=== PATIENT | female | born 1950 | race Caucasian/White ===

== ENCOUNTER 2021-12-10 10:36 | Inpatient (IN) | payer MEDICARE, MEDICAID, SELFPAY ==
--- NOTE | ~2021-12-10 | US_ITS ---
EXAMINATION: US VENOUS ULTRASOUND WITH DOPPLER LOWER EXTREMITY, LEFT CLINICAL INFORMATION: Left lower extremity pain, redness and swelling. COMPARISON: None TECHNIQUE: Ultrasound of the deep veins is performed from the hip to the calf with compression sonography and color and pulse Doppler assessment. Spectral analysis with color-flow imaging is performed. FINDINGS: There is normal venous compression and respiratory variation and augmented flow. The visualized common femoral vein, superficial femoral vein, profunda femoral vein, popliteal vein, and the trifurcation region shows no evidence of deep venous thrombosis. No left popliteal cyst. Mild subcutaneous edema is seen in the left calf If the patient's symptoms persist, followup ultrasound in 5 days 7 days might be of value to exclude proximal propagation from a non-visualized calf vein. US/US venous duplex LE IMPRESSION: No evidence for deep venous thrombosis in the visualized veins of the left lower extremity.
[2021-12-10 10:47] VITALS: BP 114/69; PULSE 84; RESP 18; TEMP 37; O2SAT 93; BMI 32.9
[2021-12-10 12:56] LABS: MANUAL DIFF FLAG NO
[2021-12-10 12:58] LABS: Basophils Percent Auto 0.1 % (0-2); Eosinophils Percent Auto 0.1 % (0-4); Hematocrit 38.7 % (37.0-47.0); Hemoglobin 13.3 g/dl (12.0-16.0); Imm Gran Abs Auto 0.02 X10*3/uL (0.00-0.03); Imm Gran Pct Auto 0.2 % (0.0-0.4); Lymphocytes Absolute Auto 0.8 X10*3/uL (1.2-4.9); Mean Corpuscular HGB Conc 34.4 g/dl (31.0-35.0); Mean Corpuscular Hemoglobin 28.3 pg (27.0-33.0); Mean Corpuscular Volume 82.3 fL (80.0-98.0); Mean Platelet Volume 10.5 fL (9.4-12.3); Monocytes Absolute Auto 0.9 X10*3/uL (0.1-1.2); Monocytes Percent Auto 10.8 % (2-11); Neutrophils Absolute Auto 6.3 x10*3/uL (2.0-8.3); Neutrophils Percent Auto 78.8 % (45-73); Platelet Count 166 X10*3/uL (160-400); Red Cell Distribution Width 14.4 % (11.0-16.0); White Blood Count 8.1 X10*3/uL (4.8-10.8)
--- NOTE | 2021-12-10 13:04 | ED_ITS ---
HPI - Extremity Problem General Chief complaint: Extremity Problem Stated complaint: Fever/L leg red swollen Time Seen by Provider: 12/10/21 10:59 Source: patient, family, RN notes reviewed and old records reviewed Limitations: language barrier (Grandson used to interpret patient) History of Present Illness HPI Narrative: This is a 71-year-old Fijian speaking-female presenting to the emergency department, accompanied by family, with complaints of fevers and left lower leg pain, redness and swelling x 4 days. Family reports that patient developed a high fever on Monday night, and the next morning, patient noticed redness to her left foot. The family reports that patient was too weak and was in too much pain to bear weight on her left leg and foot. The redness had progressed up her left lower leg and foot and has had intermittent fevers. Patient reports that she has a history of similar symptoms in the past, however has never progressed to this extent. The family reports that patient did strike her left leg on a storm door 1 week ago, which left a slight abrasion on her left calf but otherwise denies any other recent or injury to her leg. The patient denies any chest pain, shortness of breath, nausea, vomiting, diarrhea, abdominal pain dizziness, syncope. She denies any other complaints or concerns at this time. MD Complaint: extremity pain and extremity swelling Onset (ago): day(s) (4) Pain Consistency: constant Location: left and lower extremity Severity scale (1-10): 3 Quality: aching Radiation: none Relieving factors: nothing Exacerbating factors: nothing Associated symptoms: denies other symptoms Related Data Allergies Allergy/AdvReac Type Severity Reaction Status Date / Time No Known Allergies Allergy Verified 12/10/21 10:46 Review of Systems 2 Review of Systems: Constitutional: +Fever, No Chills ENT/Mouth: No sore throat, No Rhinorrhea, No Swallowing Difficulty Eyes: No Eye Pain, No Swelling, No Redness Cardiovascular: No Chest Pain, No SOB, No Orthopnea, + Edema Respiratory: No Cough, No Sputum, No Wheezing, No dyspnea Gastrointestinal: No Nausea, No Vomiting, No Diarrhea, No abdominal Pain, No Hematochezia, No Melena Genitourinary: +urinary frequency, No Dysuria, No Hematuria Musculoskeletal: No joint pain, No Myalgias Skin: +rash to left leg, +erythema Neuro: No Weakness, No Numbness, No Dizziness, No Headache Psych: No Anxiety/Panic, No Depression Heme/Lymph: No Bruising, No Lymphadenopathy Endocrine: No Polyuria, No Polydipsia [facility] Past Medical History Medical History (Updated 12/10/21 @ 15:35 by Rory Vasquez MD) HLD (hyperlipidemia) Prediabetes Social History Social History Advance Directives: Yes Advance Directives Information Provided: Yes Advance Directives on File: No Physical Exam Vital Signs: Vital Signs: Last Vital Signs Temp 98.2 F 12/10/21 15:37 Pulse 74 12/10/21 15:37 Resp 16 12/10/21 15:37 BP 116/68 12/10/21 15:37 Pulse Ox 94 12/10/21 15:37 O2 Del Method 12/10/21 15:37 BMI result Body Mass Index 32.9 Appearance: Alert. Oriented X3. No acute distress. Eyes: Pupils equal, round and reactive to light. Extra-occular motions are intact. Conjunctiva is non-injected. ENT: Pharynx normal. Tonsils are non edematous and non-erythematous, uvula is midline. Tongue with thick white film, dry mucous membranes. Neck: Normal inspection. Neck supple. CVS: Normal heart rate and rhythm. S1S2. Pulses normal. Respiratory: No respiratory distress. Breath sounds normal. Lung sounds are clear to auscultation bilaterally, no wheezes, rhonchi or rales. Abdomen: Soft and nontender. +BS x4 Skin: Left foot with erythema and edema, that blanches, to the anterior and plantar aspect of the left foot, sparing the longitudinal plantar arch. Left lower leg with circumferential erythema,edema and warmth, extending up to mid- calf. There is a 4cm superficial linear abrasion noted to the left leg, approximately 5cm from the left medial mallelous. There is a 4cm circular, violaceous, flat area of erythema, that is non-blanching. DP are 2+. Extremities: No lower extremity edema. Full range of motion of left knee, ankle, foot, and metatarsals. Neuro: Oriented X 3. No motor deficit. No sensory deficit. Course Course Course Narrative: This is a [id number]-female presenting to the emergency department, accompanied by family, with complaints of fevers and left lower leg pain, redness and swelling x 4 days. Concern for cellulitis with possible vasculitis given PE findings. Will cover broadly with ABX as well as steroids for vasculitis. Case d/w Dr. Espino. Anticipate admission. Plan: Labs, COVID 19 testing, venous duplex ultrasound of the lower extremities ordered. Reevaluation(s) Reevaluation #1: CBC returns with no evidence of leukocytosis however there is a mild left shift with a neutrophil % of 78.8%. ESR is elevated at 75, CRP is elevated at 23.69, potassium is 3.2. Potassium chloride 40 mEq PO given for potassium replenishment. Ultrasound still pending at this time. Time: 14:43 Reevaluation #2: US negative for DVT. Will plan for admission for further treatment and workup. TT Dr. Vasquez who will admit. Time: 15:53 MDM - Extremity (Nontraumatic) Lab Data Result diagrams: 12/10/21 12:50 12/10/21 12:50 Labs: Lab Results 12/10/21 12/10/21 12/10/21 Range/Units 12:50 12:50 12:50 WBC 8.1 (4.8-10.8) X10*3/uL RBC 4.70 (4.20-5.50) X10*6/uL Hgb 13.3 (12.0-16.0) g/dl Hct 38.7 (37.0-47.0) % MCV 82.3 (80.0-98.0) fL MCH 28.3 (27.0-33.0) pg MCHC 34.4 (31.0-35.0) g/dl RDW 14.4 (11.0-16.0) % Plt Count 166 (160-400) X10*3/uL MPV 10.5 (9.4-12.3) fL Immature Gran % (Auto) 0.2 (0.0-0.4) % Neut % (Auto) 78.8 H (45-73) % Lymph % (Auto) 10.0 L (20-40) % [place] % (Auto) 10.8 (2-11) % Eos % (Auto) 0.1 (0-4) % Baso % (Auto) 0.1 (0-2) % Lymph # (Auto) 0.8 L (1.2-4.9) X10*3/uL [place] # (Auto) 0.9 (0.1-1.2) X10*3/uL Eos # (Auto) 0.0 (0.0-0.4) X10*3/uL Baso # (Auto) 0.0 (0.0-0.2) X10*3/uL Abs Immat Gran (auto) 0.02 (0.00-0.03) X10*3/uL Absolute Neuts (auto) 6.3 (2.0-8.3) x10*3/uL Absolute Nucleated RBC 0.000 (0.0-0.012) X10*3/uL Nucleated RBC % (auto) 0.0 (0.0-0.2) /100WBC ESR (0-20) MM/HR Sodium 135 (135-145) mmol/L Potassium 3.2 L (3.3-5.1) mmol/L Chloride 96 (96-108) mmol/L Carbon Dioxide 26 (22-29) mmol/L Anion Gap 16 (12-20) BUN 21 H (9-16) mg/dL Creatinine 0.90 (0.5-1.4) mg/dL Estim Creat Clear Calc 56.7 Estimated GFR > 60 Random Glucose 124 H (60-115) mg/dL Lactic Acid 1.2 (0.5-2.0) mmol/L Calcium 8.9 (8.4-10.2) mg/dL Magnesium 2.2 (1.6-2.6) mg/dL Total Bilirubin 1.2 H (0.0-1.0) mg/dL Direct Bilirubin 0.5 (0.0-0.5) mg/dL AST 29 (5-31) U/L ALT 23 (0-31) U/L Alkaline Phosphatase 87 (39-117) U/L C-Reactive Protein 23.69 H (< or = 0.50) mg/dL Total Protein 7.5 (6.5-8.0) g/dL Albumin 4.2 (3.5-5.0) g/dL COVID-19 (BUTCH) (Negative) COVID-19 Clin Com 12/10/21 12/10/21 Range/Units 12:50 12:50 WBC (4.8-10.8) X10*3/uL RBC (4.20-5.50) X10*6/uL Hgb (12.0-16.0) g/dl Hct (37.0-47.0) % MCV (80.0-98.0) fL MCH (27.0-33.0) pg MCHC (31.0-35.0) g/dl RDW (11.0-16.0) % Plt Count (160-400) X10*3/uL MPV (9.4-12.3) fL Immature Gran % (Auto) (0.0-0.4) % Neut % (Auto) (45-73) % Lymph % (Auto) (20-40) % [place] % (Auto) (2-11) % Eos % (Auto) (0-4) % Baso % (Auto) (0-2) % Lymph # (Auto) (1.2-4.9) X10*3/uL [place] # (Auto) (0.1-1.2) X10*3/uL Eos # (Auto) (0.0-0.4) X10*3/uL Baso # (Auto) (0.0-0.2) X10*3/uL Abs Immat Gran (auto) (0.00-0.03) X10*3/uL Absolute Neuts (auto) (2.0-8.3) x10*3/uL Absolute Nucleated RBC (0.0-0.012) X10*3/uL Nucleated RBC % (auto) (0.0-0.2) /100WBC ESR 75 H (0-20) MM/HR Sodium (135-145) mmol/L Potassium (3.3-5.1) mmol/L Chloride (96-108) mmol/L Carbon Dioxide (22-29) mmol/L Anion Gap (12-20) BUN (9-16) mg/dL Creatinine (0.5-1.4) mg/dL Estim Creat Clear Calc Estimated GFR Random Glucose (60-115) mg/dL Lactic Acid (0.5-2.0) mmol/L Calcium (8.4-10.2) mg/dL Magnesium (1.6-2.6) mg/dL Total Bilirubin (0.0-1.0) mg/dL Direct Bilirubin (0.0-0.5) mg/dL AST (5-31) U/L ALT (0-31) U/L Alkaline Phosphatase (39-117) U/L C-Reactive Protein (< or = 0.50) mg/dL Total Protein (6.5-8.0) g/dL Albumin (3.5-5.0) g/dL COVID-19 (BUTCH) Negative (Negative) COVID-19 Clin Com See Note Discharge Plan Discharge Clinical Impression: Cellulitis, Vasculitis Patient Disposition: Admitted As Inpatient
[2021-12-10 13:16] LABS: COVID-19 Test Negative (Negative); IDNOW Serial# 9DB6401D
[2021-12-10 13:43] LABS: Lactic Acid 1.2 mmol/L (0.5-2.0)
[2021-12-10 13:55] LABS: Alanine Aminotransferase 23 U/L (0-31); Albumin Level 4.2 g/dL (3.5-5.0); Alkaline Phosphatase 87 U/L (39-117); Anion Gap 16 (12-20); Aspartate Amino Transferase 29 U/L (5-31); Bilirubin Direct 0.5 mg/dL (0.0-0.5); Bilirubin Total 1.2 mg/dL (0.0-1.0); Blood Urea Nitrogen 21 mg/dL (9-16); C Reactive Protein 23.69 mg/dL (< or = 0.50); Calcium 8.9 mg/dL (8.4-10.2); Carbon Dioxide 26 mmol/L (22-29); Chloride 96 mmol/L (96-108); Creatinine Clr Calc Pharmacy 56.7; Estimated Glomerular Filt Rate > 60; Glucose Random 124 mg/dL (60-115); Magnesium 2.2 mg/dL (1.6-2.6); Potassium 3.2 mmol/L (3.3-5.1); Sodium 135 mmol/L (135-145); Total Protein 7.5 g/dL (6.5-8.0)
[2021-12-10 14:14] LABS: Erythrocyte Sedimentation Rate 75 MM/HR (0-20)
[2021-12-10] MEDS: methylPREDNISolone Sod Succ 125 MG/2 ML VIAL 60 MG IVPUSH (14:42)
[2021-12-10] MEDS: cefTRIAXone sodium 1 GM in 0.9 % Sodium Chloride 50 ML IV (14:42)
[2021-12-10] MEDS: 0.9 % Sodium Chloride 1,000 ML 999 ML IVCONT (14:43)
[2021-12-10] MEDS: Potassium Chloride ER 20 MEQ TAB.ER.PRT 40 MEQ PO (14:53)
[2021-12-10 15:37] VITALS: BP 116/68; PULSE 74; RESP 16; TEMP 36.8; O2SAT 94
--- NOTE | 2021-12-10 16:24 | P.HPHOSP_ITS ---
History of Present Illness Date of Service: 12/10/21 Chief Complaint: LLE redness This is a 71-year-old, Tajik-speaking female with a past medical history of hypertension who presents to the emergency room with a 4 day history of left lower extremity redness, swelling, pain with associated fevers. 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 Shortly before the patient's left lower extremity redness started, she had sustained a minor cut to the same extremity. It appears that she 1st began having fevers and by the next day her leg was becoming increasingly eryth ematous. Her fevers have resolved now per the family, however her erythema persist and hence they brought her to the emergency room. In the emergency room, the patient was noted to have elevations in her ESR and CRP with a normal leukocytosis, however there is a left shift. She was given IV ceftriaxone and IV vancomycin along with intravenous fluids. Due to the extent of her cellulitis, she will be admitted for IV antibiotics. Review of Systems Review of Systems: negative except HPI [facility] Medical History (Updated 12/10/21 @ 16:27 by Khoa Cline MD) HLD (hyperlipidemia) Prediabetes Pertinent family history: No significant family history reported Surgical History (Updated 12/10/21 @ 16:28 by Khoa Cline MD) No pertinent past surgical history Social History (Updated 12/10/21 @ 16:28 by Khoa Cline MD) Alcohol intake: never Patient Tobacco Use Status: Never used Tobacco Use of substances other than those prescribed or required for medical reasons: No Advance Directives: Yes Advance Directives Information Provided: Yes Advance Directives on File: No Meds Allergies Allergy/AdvReac Type Severity Reaction Status Date / Time No Known Allergies Allergy Verified 12/10/21 10:46 Physical Exam Vital Signs and Narrative: Vital Signs: Last Vital Signs Temp 98.2 F 12/10/21 15:37 Pulse 74 12/10/21 15:37 Resp 16 12/10/21 15:37 BP 116/68 12/10/21 15:37 Pulse Ox 94 12/10/21 15:37 O2 Del Method 12/10/21 15:37 BMI result Body Mass Index 32.9 Const: Other: Constitutional - Awake and Alert, No apparent distress Eyes - PERRLA, EOMI Cardiovascular - S1S2, RRR, No edema Respiratory - Normal lung expansion, Normal respiratory effort, No respiratory distress, CTA bilaterally Gastrointestinal - NT / ND; +BS; No rebound or guarding - No CVA tenderness Extremities - no calf tenderness bilaterally, no swelling Musculoskeletal - Normal inspection, normal ROM Skin - see below Neurological - Alert & oriented x3, No focal deficit Psychological - Appropriate affect Results Labs CBC and Chem 7: 12/10/21 12:50 12/10/21 12:50 Labs: Laboratory Results - last 24 hr 12/10/21 12/10/21 12/10/21 12:50 12:50 12:50 MCV 82.3 MCH 28.3 MCHC 34.4 RDW 14.4 Plt Count 166 MPV 10.5 Immature Gran % (Auto) 0.2 Neut % (Auto) 78.8 H Lymph % (Auto) 10.0 L [place] % (Auto) 10.8 Eos % (Auto) 0.1 Baso % (Auto) 0.1 Lymph # (Auto) 0.8 L [place] # (Auto) 0.9 Eos # (Auto) 0.0 Baso # (Auto) 0.0 Abs Immat Gran (auto) 0.02 Absolute Neuts (auto) 6.3 Absolute Nucleated RBC 0.000 Nucleated RBC % (auto) 0.0 ESR Anion Gap 16 Estim Creat Clear Calc 56.7 Estimated GFR > 60 Random Glucose 124 H Lactic Acid 1.2 Calcium 8.9 Magnesium 2.2 Total Bilirubin 1.2 H Direct Bilirubin 0.5 AST 29 ALT 23 Alkaline Phosphatase 87 C-Reactive Protein 23.69 H Total Protein 7.5 Albumin 4.2 COVID-19 (BUTCH) COVID-19 Clin Com 12/10/21 12/10/21 12:50 12:50 MCV MCH MCHC RDW Plt Count MPV Immature Gran % (Auto) Neut % (Auto) Lymph % (Auto) [place] % (Auto) Eos % (Auto) Baso % (Auto) Lymph # (Auto) [place] # (Auto) Eos # (Auto) Baso # (Auto) Abs Immat Gran (auto) Absolute Neuts (auto) Absolute Nucleated RBC Nucleated RBC % (auto) ESR 75 H Anion Gap Estim Creat Clear Calc Estimated GFR Random Glucose Lactic Acid Calcium Magnesium Total Bilirubin Direct Bilirubin AST ALT Alkaline Phosphatase C-Reactive Protein Total Protein Albumin COVID-19 (BUTCH) Negative COVID-19 Clin Com See Note Imaging Radiologist's Impressions: Impressions Venous Duplex 12/10/21 14:45 IMPRESSION: No evidence for deep venous thrombosis in the visualized veins of the left lower extremity. Assessment and Plan (1) Cellulitis: Status: Acute Plan This is a 71-year-old female with a past medical history of hypertension, pre-DM (Recent A1C at [facility] [place] 6.1), HLD who presents to the hospital with a 4 day history of left lower extremity erythema, pain, fevers. Her presentation is most consistent with acute cellulitis. 1. LLE cellulitis >50% of the limb, from foot to knee Likely Strep IV kefzol +IV clindamycin IVF the patient does not have severe sepsis at this time 2. HTN hold antihypertensives 3. Obesity weight loss / diet 4. Pre-DM A1c 6.1 at [facility] [place] recently doesnt appear to be on meds Full Code DVT pptx, Lovenox Due to the extensive nature of the patients cellulitis (along with her being pre-diabetic), which I anticipate will require at least 2-3 days of multiple IV antibiotics, the patient will be admitted as an inpatient. I do not believe her cellulitis will improve significantly enough for transition to oral meds within 48 hours. Therefore, she will require a medically necessary inpatient hospitalization, likely to span at least 2 midnights. Quality Stroke Does the patient have a stroke diagnosis?: No VTE Prior VTE?: No VTE Risk Level:: Medical - moderate - high VTE Device Contraindication: Treatment Not Indicated VTE Drug Contraindication: N/A - Med Ordered
--- NOTE | 2021-12-10 17:08 | PHA.MEDREC ---
Pharmacy Consult ? Medication Reconciliation Pharmacy has completed the medication reconciliation. Contacted patient's family with Dr. Cline. They report atenolol 25-50 mg and amlodipine 5 mg. Contacted patient's pharmacy [phone], who was able to confirm it is atenolol-chlorthalidone combination tablet. Gloria Barber, PharmD
[2021-12-10 17:25] VITALS: BP 125/72; PULSE 67; RESP 16; TEMP 36.2; O2SAT 90
[2021-12-10] MEDS: Clindamycin Phosphate/D5W 600 MG/50 ML PIGGYBACK 100 MG IV (17:53)
[2021-12-10] MEDS: Enoxaparin Sodium 40 MG/0.4 ML SYRINGE SUBCUT (17:53)
[2021-12-10] MEDS: 0.9 % Sodium Chloride 1,000 ML 100 ML IVCONT (17:53)
[2021-12-10] MEDS: ceFAZolin Sodium/Dextrose,Iso 2 GM/50 ML PIGGYBACK IV (18:59)
[2021-12-10 20:13] LABS: Appearance Urine CLEAR; Color Urine YELLOW; Glucose Urine UA NEG (NEG); Leukocyte Esterase Urine 1+ (NEG); Nitrite Urine NEG (NEG); Specific Gravity - Urine <= 1.005 (1.005-1.025); UACC Culture Trigger YES; Urine Blood NEG (NEG); Urine Ketones 5 MG/DL (NEG); Urine Protein NEG (NEG-TRACE)
[2021-12-10 20:26] LABS: Amorphous Sediment Urine 1+ /LPF; Mucus Urine 1+ /LPF; Squamous Epithelial Cell Urine 1+ /LPF
[2021-12-10 21:36] VITALS: BP 141/79; PULSE 76; RESP 16; TEMP 36.7; O2SAT 98
--- NOTE | 2021-12-10 22:13 | PC.NURSE ---
no assessment charted by previous RN
--- NOTE | 2021-12-10 22:27 | PC.NURSE ---
PATIENT WAS OFFER FOOD ,BUT REFUSED ,SAID SHE BROUGHT FOOD FROM HOME ,PATIENT USE BEDSIDE COMMODE INDEPENDENTLY .
[2021-12-11] MEDS: ceFAZolin Sodium/Dextrose,Iso 2 GM/50 ML PIGGYBACK IV ×3 (00:59→16:38)
[2021-12-11] MEDS: 0.9 % Sodium Chloride Flush 3 ML SYRINGE IVFLUSH (00:59)
--- NOTE | 2021-12-11 01:00 | PC.NURSE ---
RESTING COMF.DENIES PAIN.LEFT LOWER EXT REMAINS REDDENED WITH 2+ EDEMA.AREAS MARKED.IV FLUIDS INFUSING
[2021-12-11] MEDS: Clindamycin Phosphate/D5W 600 MG/50 ML PIGGYBACK 100 MG IV ×3 (01:49→16:38)
[2021-12-11] MEDS: 0.9 % Sodium Chloride 1,000 ML 100 ML IVCONT (04:08)
[2021-12-11 07:34] LABS: Hematocrit 35.3 % (37.0-47.0); Hemoglobin 11.9 g/dl (12.0-16.0); Mean Corpuscular HGB Conc 33.7 g/dl (31.0-35.0); Mean Corpuscular Hemoglobin 27.9 pg (27.0-33.0); Mean Corpuscular Volume 82.7 fL (80.0-98.0); Mean Platelet Volume 10.7 fL (9.4-12.3); Platelet Count 167 X10*3/uL (160-400); Red Blood Count 4.27 X10*6/uL (4.20-5.50); Red Cell Distribution Width 14.3 % (11.0-16.0); White Blood Count 5.3 X10*3/uL (4.8-10.8)
[2021-12-11 07:53] LABS: Anion Gap 13 (12-20); Blood Urea Nitrogen 16 mg/dL (9-16); Calcium 8.6 mg/dL (8.4-10.2); Carbon Dioxide 24 mmol/L (22-29); Chloride 106 mmol/L (96-108); Creatinine Clr Calc Pharmacy 71.9; Estimated Glomerular Filt Rate > 60; Glucose Random 156 mg/dL (60-115); Potassium 4.3 mmol/L (3.3-5.1); Sodium 139 mmol/L (135-145)
[2021-12-11 09:03] VITALS: BP 129/67; PULSE 78; RESP 16; O2SAT 94
--- NOTE | 2021-12-11 10:21 | P.PNIM_ITS ---
Subjective Subjective Date of Service: 12/11/21 Interval History: seen and examined family translates reports less pain and wants to go home denies fevers or chills Review of Systems negative except HPI Physical Exam Vital Signs: Vital Signs: Last Vital Signs Temp 98.0 F 12/10/21 21:36 Pulse 78 12/11/21 09:03 Resp 16 12/11/21 09:03 BP 129/67 12/11/21 09:03 Pulse Ox 94 12/11/21 09:03 O2 Del Method 12/11/21 09:03 BMI result Body Mass Index 32.9 Const: Other: General - no acute distress, appears comfortable Cardiovascular - regular rate and rhythm, S1-S2 Lungs - normal respiratory effort, clear to auscultation bilaterally, no wheezing Abdomen - soft, nontender, no rebound or guarding Extremities - LLE erythema, warmth and edema improved compared to yesterday Neuro - awake and alert, no focal deficits Objective Data Active Medications Acetaminophen (Acetaminophen 325 Mg Tablet) 650 mg PO Q6H PRN PRN Reason: Pain, Mild (Pain Scale 1-3) Enoxaparin Sodium (Enoxaparin Sodium 40 Mg/0.4 Ml Syringe) 40 mg SUBCUT Q24H [facility] Last Admin: 12/10/21 17:53 Dose: 40 mg Documented By: ALICIA Sodium Chloride (Ns) 1,000 mls @ 100 mls/hr IVCONT .Q10H [facility] Last Admin: 12/11/21 04:08 Dose: 100 mls/hr Documented By: FLAQUITO Clindamycin Phosphate (Cleocin) 600 mg in 50 mls @ 100 mls/hr IV Q8H [facility] Last Infusion: 12/11/21 02:48 Dose: 0 mls/hr Documented By: FLAQUITO Cefazolin Sodium/Dextrose (Ancef) 2 gm in 50 mls @ 100 mls/hr IV Q8H [facility] Last Infusion: 12/11/21 01:33 Dose: 0 mls/hr Documented By: FLAQUITO Ondansetron HCl (Ondansetron Hcl 4 Mg/2 Ml Vial) 4 mg IVPUSH Q8H PRN PRN Reason: Nausea and Vomiting Sodium Chloride (0.9 % Sodium Chloride Flush 3 Ml Syringe) 3 ml IVFLUSH QSHIFT [facility] Last Admin: 12/11/21 08:18 Dose: Not Given Documented By: RENATO Non-Admin Reason: assessed Labs CBC & Chem 7: 12/11/21 06:11 12/11/21 06:11 Labs: Laboratory Results - last 24 hr 12/10/21 12/10/21 12/10/21 12:50 12:50 12:50 MCV 82.3 MCH 28.3 MCHC 34.4 RDW 14.4 Plt Count 166 MPV 10.5 Immature Gran % (Auto) 0.2 Neut % (Auto) 78.8 H Lymph % (Auto) 10.0 L [place] % (Auto) 10.8 Eos % (Auto) 0.1 Baso % (Auto) 0.1 Lymph # (Auto) 0.8 L [place] # (Auto) 0.9 Eos # (Auto) 0.0 Baso # (Auto) 0.0 Abs Immat Gran (auto) 0.02 Absolute Neuts (auto) 6.3 Absolute Nucleated RBC 0.000 Nucleated RBC % (auto) 0.0 ESR Anion Gap 16 Estim Creat Clear Calc 56.7 Estimated GFR > 60 Random Glucose 124 H Lactic Acid 1.2 Calcium 8.9 Magnesium 2.2 Total Bilirubin 1.2 H Direct Bilirubin 0.5 AST 29 ALT 23 Alkaline Phosphatase 87 C-Reactive Protein 23.69 H Total Protein 7.5 Albumin 4.2 Urine Color Urine Appearance Urine pH Ur Specific [place] Urine Protein Urine Glucose (UA) Urine Ketones Urine Blood Urine Nitrite Ur Leukocyte Esterase Urine RBC Urine WBC Ur Squamous Epith Cells Amorphous Sediment Urine Bacteria Urine Mucus COVID-19 (BUTCH) COVID-19 Clin Com 12/10/21 12/10/21 12/10/21 12:50 12:50 20:06 MCV MCH MCHC RDW Plt Count MPV Immature Gran % (Auto) Neut % (Auto) Lymph % (Auto) [place] % (Auto) Eos % (Auto) Baso % (Auto) Lymph # (Auto) [place] # (Auto) Eos # (Auto) Baso # (Auto) Abs Immat Gran (auto) Absolute Neuts (auto) Absolute Nucleated RBC Nucleated RBC % (auto) ESR 75 H Anion Gap Estim Creat Clear Calc Estimated GFR Random Glucose Lactic Acid Calcium Magnesium Total Bilirubin Direct Bilirubin AST ALT Alkaline Phosphatase C-Reactive Protein Total Protein Albumin Urine Color YELLOW Urine Appearance CLEAR Urine pH 6.0 Ur Specific [place] <= 1.005 Urine Protein NEG Urine Glucose (UA) NEG Urine Ketones 5 Urine Blood NEG Urine Nitrite NEG Ur Leukocyte Esterase 1+ H Urine RBC 5-9 H Urine WBC 5-9 H Ur Squamous Epith Cells 1+ Amorphous Sediment 1+ Urine Bacteria NONE Urine Mucus 1+ COVID-19 (BUTCH) Negative COVID-19 Clin Com See Note 12/11/21 12/11/21 06:11 06:11 MCV 82.7 MCH 27.9 MCHC 33.7 RDW 14.3 Plt Count 167 MPV 10.7 Immature Gran % (Auto) Neut % (Auto) Lymph % (Auto) [place] % (Auto) Eos % (Auto) Baso % (Auto) Lymph # (Auto) [place] # (Auto) Eos # (Auto) Baso # (Auto) Abs Immat Gran (auto) Absolute Neuts (auto) Absolute Nucleated RBC 0.000 Nucleated RBC % (auto) 0.0 ESR Anion Gap 13 Estim Creat Clear Calc 71.9 Estimated GFR > 60 Random Glucose 156 H Lactic Acid Calcium 8.6 Magnesium Total Bilirubin Direct Bilirubin AST ALT Alkaline Phosphatase C-Reactive Protein Total Protein Albumin Urine Color Urine Appearance Urine pH Ur Specific [place] Urine Protein Urine Glucose (UA) Urine Ketones Urine Blood Urine Nitrite Ur Leukocyte Esterase Urine RBC Urine WBC Ur Squamous Epith Cells Amorphous Sediment Urine Bacteria Urine Mucus COVID-19 (BUTCH) COVID-19 Clin Com Assessment and Plan (1) Cellulitis: Status: Acute Plan This is a 71-year-old female with a past medical history of hypertension, pre-DM (Recent [place] [facility] [place].1), HLD who presents to the hospital with a 4 day history of left lower extremity erythema, pain, fevers.? Her presentation is most consistent with acute cellulitis. 1. LLE cellulitis >50% of the limb, from foot to knee IV kefzol +IV clindamycin - day #2 follow cultures 2. HTN hold antihypertensives 3. Obesity weight loss / diet 4. Pre-DM A1c 6.1 at [facility] [place] recently doesn't appear to be on meds Full Code DVT pptx, Lovenox Patient requires continued hospitalization due to the severe of her cellulitis (limb at risk). Although it is improving, it has not improved enough to transition to oral meds. Quality Stroke Does the patient have a stroke diagnosis?: No VTE Prior VTE?: No VTE Risk Level:: Medical - moderate - high VTE Device Contraindication: Treatment Not Indicated VTE Drug Contraindication: N/A - Med Ordered
[2021-12-11] MEDS: Enoxaparin Sodium 40 MG/0.4 ML SYRINGE SUBCUT (16:39)
--- NOTE | 2021-12-11 18:08 | PC.NURSE ---
Pt family at bedside today assisting with care. pt able to ambulate w/o assist steadily. call gibson within reach. pt is new zealander speaking only. assessed pt this AM. call gibson within reach, safety and fall precautions in place. pt able to repo self.
[2021-12-11 18:10] VITALS: BP 129/74; PULSE 60; RESP 12; TEMP 36.2; O2SAT 93
[2021-12-12] MEDS: Clindamycin Phosphate/D5W 600 MG/50 ML PIGGYBACK 100 MG IV ×2 (01:34→09:53)
[2021-12-12 01:38] VITALS: BP 149/90; PULSE 63; RESP 16; O2SAT 93
[2021-12-12] MEDS: ceFAZolin Sodium/Dextrose,Iso 2 GM/50 ML PIGGYBACK IV (02:23)
--- NOTE | 2021-12-12 07:27 | PC.NURSE ---
Assumed care of this pt. at 0700. Report from Shania Pimentel RN
[2021-12-12 09:51] VITALS: BP 129/72; PULSE 69; RESP 18; O2SAT 93
--- NOTE | 2021-12-12 09:57 | P.DS_ITS ---
DS: Providers Provider Date of Service: 12/12/21 Date of admission: 12/10/21 16:19 Primary care physician: Unknown Physician DS: Diagnosis Discharge Diagnosis (1) Cellulitis: Status: Acute (2) Obesity: Status: Acute (3) Benign essential HTN: Status: Acute DS: Summary Hospital Course Hospital Course: HPI: This is a 71-year-old, Singaporean-speaking female with a past medical history of hypertension who presents to the emergency room with a 4 day history of left lower extremity redness, swelling, pain with associated fevers.? The patient prefers to use family for interpretation and the education specialist over the phone.? Shortly before the patient's left lower extremity redness started, she had sustained a minor cut to the same extremity.? It appears that she 1st began having fevers and by the next day her leg was becoming increasingly erythematous.? Her fevers have resolved now per the family, however her erythema persist and hence they brought her to the emergency room. In the emergency room, the patient was noted to have elevations in her ESR and CRP with a normal leukocytosis, however there is a left shift.? She was given IV ceftriaxone and IV vancomycin along with intravenous fluids.? Due to the extent of her cellulitis, she will be admitted for IV antibiotics. Hospital Course: The patient was treated with IV clinda + kefzol. SHe improved the course of 3 days in the hospital with significant improvement in her cellulitis. She will be transitioned to oral kefelx x 7 more days. She should f/u with pcp within 1-2 weeks to ensure resolution. Time Spent with Patient Time attestation: Total time spent providing and/or coordinating discharge services: Discharge coordination time: Greater than 30 minutes Quality: Safe Use of Opioids Does Pt have an Active Cancer Diagnosis on the Problem List?: No Quality: Stroke Does the patient have a stroke diagnosis?: No Physical Exam Vital Signs: Vital Signs: Last Vital Signs Temp 97.1 F 12/11/21 18:10 Pulse 69 12/12/21 09:51 Resp 18 12/12/21 09:51 BP 129/72 12/12/21 09:51 Pulse Ox 93 12/12/21 09:51 O2 Del Method 12/12/21 09:51 BMI result Body Mass Index 32.9 Const: Other: General - no acute distress, appears comfortable Cardiovascular - regular rate and rhythm, S1-S2 Lungs - normal respiratory effort, clear to auscultation bilaterally, no wheezing Abdomen - soft, nontender, no rebound or guarding Extremities - LLE erythema significant improved; minial in the foot remaining now Neuro - awake and alert, no focal deficits DS: Data Data Completed and Pending Labs on day of discharge: Preliminary micro results at discharge 12/10/21 12:39 Blood Culture - Preliminary Blood - Venous No growth after 24 hours. 12/10/21 12:50 Blood Culture - Preliminary Blood - Venous No growth after 24 hours. 12/10/21 20:06 Urine Culture - Preliminary Urine clean catch - Urine williamson top No growth to date. Discharge Plan Discharge Patient Disposition: Home, Self-Care Discharge Diagnosis: Cellulitis Referrals: Physician,Unknown J [Primary Care Provider] - 1 Week Discharge Medications: New cephalexin 500 mg capsule 500 mg PO QID Qty: 28 0RF Continued atenolol-chlorthalidone 50-25 mg Tablet 1 tab PO DAILY amlodipine 5 mg Tablet 5 mg PO DAILY Discharge Orders: Discharge Order (Routine); Ordered 12/12/21 Ordered By: Khoa Cline Diet: Advance to usual diet Activity on Discharge: As tolerated Stand Alone Forms: Patient Portal Discharge page Care Plan Goals: To stay healthy and out of the hospital. Health Concerns: Cellulitis Plan of Treatment: Take antibiotics for 7 more days. Follow up with primary care doctor. Assessment: see discharge summary
--- NOTE | 2021-12-13 06:59 | MHC.CM.PN ---
Patient discharged before being seen by case management.
--- NOTE | 2021-12-13 14:36 | MHC.CM.PN ---
Received telephone call from Ruby at [facility]. Patient was supposed to be discharged with a RX for oral Keflex. [facility] did not receive this RX. Dr Cline has been asked to resend this RX. Continue to monitor for d/c needs.
== END 2021-12-12 10:47 | disposition home or self-care (01) | DRG 603 ==
LOC: HO.ED 15:33 → HO.EDOVER 16:27
PROVIDERS: Physician Assistant; Admitting Provider Family Medicine; Emergency Provider Emergency Medicine; Visit Provider Family Medicine
DX: L03.116 Cellulitis of left lower limb (principal); E78.5 Hyperlipidemia, unspecified; I10 Essential (primary) hypertension; R73.03 Prediabetes; E66.9 Obesity, unspecified; Z68.32 Body mass index [BMI] 32.0-32.9, adult; Z20.822 Contact with and (suspected) exposure to COVID-19; Z79.899 Other long term (current) drug therapy
CPT/HCPCS: 36415; 80048; 80076; 81001; 83605; 83735; 85025; 85027; 85652; 86140; 87040; 87086; 87635; 93971; 96361; 96365; 96367; 96375; 99285; J0690; J0696; J1650; J2930; J3370

== ENCOUNTER 2024-05-11 19:29 | Inpatient (IN) | payer MEDICARE, SELFPAY ==
[2024-05-11] VITALS (13 sets, daily range): BP systolic 149–200; BP diastolic 85–110; PULSE 58–74; RESP 14–24; TEMP 36.3–36.8; O2SAT 92–97; BMI 33.3
--- NOTE | ~2024-05-11 | MR_ITS ---
EXAMINATION: MR BRAIN WITHOUT CONTRAST CLINICAL INFORMATION: Stroke. Status post TNK infusion. COMPARISON: CT head and neck from 05/11/2024. TECHNIQUE: MRI of the brain was obtained using routine sequences without contrast. FINDINGS: Moderately motion degraded exam. Regions of restricted diffusion in the right CO OP territory involving the parasagittal aspects of the right occipital parietal lobes, posterior aspect of the right mesial temporal lobe, and medial aspect of the right thalamus. Associated T2 FLAIR hyperintensity. No evidence of hemorrhagic transformation. No additional restricted diffusion. No evidence of acute hemorrhagic products on heme-sensitive imaging. Scattered small foci of susceptibility artifact in the right cerebral hemisphere and left thalamus consistent with petechial microhemorrhage. Small chronic lacunar infarcts of the left thalamus and cerebellum. Confluent periventricular, deep white matter, and brainstem T2 FLAIR hyperintensity consistent with underlying microangiopathy. Proportional prominence of the ventricles and sulcal spaces without evidence of obstructive hydrocephalus. No abnormal mass effect. No midline shift. Normal appearance of the pituitary gland. Normal positioning of the cerebellar tonsils. 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 Otherwise, normal arterial and venous vascular flow voids are present. Normal, homogeneous marrow signal. Mild mucosal thickening of the paranasal sinuses. No signal abnormalities within the mastoids. MR/MR head/brain wo con IMPRESSION: 1. Evolving acute right CO OP territory infarct. No evidence of hemorrhagic transformation. 2. Extensive underlying microangiopathy and generalized cerebral volume loss. Chronic lacunar infarcts of the deep nuclei and cerebellum. 3. 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 Electronically signed by: Hossein Gan DO 05/12/2024 07:13 PM [facility]
--- NOTE | ~2024-05-11 | CT_ITS ---
EXAMINATION: CT ANGIOGRAM HEAD CT ANGIOGRAM NECK CLINICAL INFORMATION: Left-sided weakness. COMPARISON: CT head from 05/11/2024. TECHNIQUE: Initial noncontrast patient representative imaging of the head and neck was performed. Comparison is made with noncontrast head CT from earlier today. Test bolus sequences followed by intravenous administration 70 mL of Omnipaque 350. Helical imaging was performed in the axial plane from the aortic arch to the skull vertex. Delayed postcontrast imaging of the head was also performed. The data was processed at the food technologist's workstation for generation of MIP sequences. Angled MIPs and volume rendered reformatted images were also generated at an offline 3D workstation. Stenoses are assessed in accordance with NASCET criteria unless otherwise indicated. This CT examination was performed using dose optimization techniques as appropriate, variously including the following: *Automated exposure control. *Adjustment of mA and/or kV according to patient size (this includes techniques or standardized protocols for targeted exams where dose is matched to indication/reason for exam; i.e. extremities or head). *Use of iterative reconstruction technique. DLP: 1441 mGy-cm FINDINGS: CT Head: Apparent region of of cortical hypoattenuation within the right greater than left occipital lobes. No evidence of acute intracranial hemorrhage. Confluent hypoattenuation in the periventricular and deep white matter. Proportional prominence of the ventricles and sulcal spaces without evidence of obstructive hydrocephalus. No abnormal mass effect or midline shift. No extra-axial fluid collections. Calcific atherosclerotic disease of the intracranial internal carotid and vertebral arteries. No hyperdense vessel sign. Potential 1.1 cm aneurysm projecting to the left of the mid basilar artery. No pathologic intra-axial enhancement. No acute soft tissue or osseous abnormalities. Mild mucosal thickening of the paranasal sinuses. The mastoid air cells and middle ear cavities are clear. Mild rightward nasal septal deviation. CT Neck: The thyroid gland and remaining cervical soft tissues are within normal limits. Straightening of the normal cervical lordosis. Advanced degenerative disc disease at C6-C7. Moderate degenerative disc disease at C5-C6. CT Upper Chest: The visualized lung apices and upper mediastinum are within normal limits. Neck CTA: Aortic Arch: Normal contour and caliber with mild calcific atherosclerotic disease Classic 3 vessel branching pattern of the aortic arch. Great Vessel Origins: No significant stenosis of the branch origins. Right Common Carotid Artery: No focal stenosis or occlusion. Cervical Right Internal Carotid Artery: Mixed fibrofatty and calcific atherosclerotic disease of the carotid bulb and proximal internal carotid artery causing less than 50% stenosis. Left Common Carotid Artery: No focal stenosis or occlusion. Cervical Left Internal Carotid Artery: Calcific atherosclerotic disease of the carotid bulb and proximal internal carotid artery causing less than 50% stenosis. Tortuous vessel as may be seen with underlying hypertension. Cervical Right Vertebral Artery: No focal stenosis or occlusion. Cervical Left Vertebral Artery: Dominant. No focal stenosis or occlusion. Brain CTA: Intracranial Internal Carotid Arteries: Calcific atherosclerotic disease of the intracranial internal carotid arteries without occlusion or flow-limiting stenosis. Right Anterior Cerebral Artery: Normal A1 segment. Normal opacification of the distal KOURTNEY segments. Left Anterior Cerebral Artery: The A1 segment is diminutive. Normal opacification of the distal KOURTNEY segments. Anterior Communicating Artery: Normal. Right Middle Cerebral Artery: Normal M1 segment of the MCA without focal stenosis or occlusion. Normal arborization of the distal segments. Left Middle Cerebral Artery: Normal M1 segment of the MCA without focal stenosis or occlusion. Normal arborization of the distal segments. Right Vertebral Artery: Normal V4 segment. Normal opacification of the proximal segments of the posterior inferior cerebellar artery. Left Vertebral Artery: Normal V4 segment. Normal opacification of the proximal segments of the posterior inferior cerebellar artery. Basilar Artery: There is a 1.4 cm partially thrombosed aneurysm projecting to the left from the mid basilar artery. Otherwise, normal without focal stenosis or occlusion. Normal appearance of the proximal superior cerebellar arteries. Right Posterior Cerebral Artery: Normal P1 segment. Occlusion of the P1-P2 junction. Reconstitution of the distal PUBLIC HEALTH NUTRITIONIST segments. Left Posterior Cerebral Artery: The P1 segment is diminutive. origin of the PUBLIC HEALTH NUTRITIONIST with robust opacification of the posterior communicating artery. Moderate stenosis of the P2 segment. Normal opacification of the distal PUBLIC HEALTH NUTRITIONIST segments. Normal opacification of the superior sagittal, straight, transverse, and sigmoid sinuses. CT/CT angio head neck STROKE IMPRESSION: 1. Apparent region of cortical hypoattenuation within the right occipital lobe. Occlusion of the P1-P2 junction of the right PUBLIC HEALTH NUTRITIONIST with partial reconstitution of the distal segments (likely from collateralization). No evidence of acute intracranial hemorrhage. This appearance may represent sequela of acute to subacute PUBLIC HEALTH NUTRITIONIST territory infarct. Although an underlying vasoreactive syndrome such as posterior reversible encephalopathy syndrome (PRES) could have a similar appearance. 2. Extensive white matter disease and mild generalized cerebral volume loss. 3. 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 4. Moderate stenosis of the P2 segment of the left PUBLIC HEALTH NUTRITIONIST. Tortuous vessels and overall relative prominence of the anterior and posterior circulation systems. Recommend correlation with potential underlying hypertension. 5. CTA of the head and neck without additional proximal occlusion or flow-limiting stenosis. This critical result was discussed with Dr. Rodriguez Ogden at 19:52 on 05/11/2024 and it was ascertained that the content and urgency of the report was understood at the time of direct communication. Electronically signed by: Hossein Gan DO 05/11/2024 10:32 PM [facility]
--- NOTE | ~2024-05-11 | CT_ITS ---
EXAMINATION: CT HEAD WITHOUT CONTRAST CLINICAL INFORMATION: Left-sided weakness. COMPARISON: None available. TECHNIQUE: Contiguous axial imaging was performed from the skull base to vertex without intravenous administration of contrast. This CT examination was performed using dose optimization techniques as appropriate, variously including the following: *Automated exposure control. *Adjustment of mA and/or kV according to patient size (this includes techniques or standardized protocols for targeted exams where dose is matched to indication/reason for exam; i.e. extremities or head). *Use of iterative reconstruction technique. DLP: 633 mGy-cm FINDINGS: Apparent regions of cortical hypoattenuation within the bilateral occipital lobes. No evidence of acute intracranial hemorrhage. Confluent hypoattenuation in the periventricular and deep white matter. Proportional prominence of the ventricles and sulcal spaces without evidence of obstructive hydrocephalus. No abnormal mass effect or midline shift. No extra-axial fluid collections. Calcific atherosclerotic disease of the intracranial internal carotid and vertebral arteries. No hyperdense vessel sign. Potential 1.1 cm aneurysm projecting to the left of the mid basilar artery. No acute soft tissue or osseous abnormalities. Mild mucosal thickening of the paranasal sinuses. The mastoid air cells and middle ear cavities are clear. Mild rightward nasal septal deviation. CT/CT head for STROKE IMPRESSION: 1. Extensive underlying white matter disease. Apparent regions of cortical hypoattenuation within the bilateral occipital lobes. This appearance is nonspecific and could be seen in the setting of SAFETY DEPOSIT BOXES CUSTODIAN territory infarcts. However, the overall appearance may be more fitting of an underlying vasoreactive syndrome such as posterior reversible encephalopathy syndrome (PRES). 2. No evidence of acute intracranial hemorrhage. 3. Potential 1.1 cm aneurysm projecting to the left of the mid basilar artery. This will be better characterized on concurrent CTA of the head. This critical result was discussed with Dr. Rodriguez Ogden at 19:52 on 05/11/2024 and it was ascertained that the content and urgency of the report was understood at the time of direct communication. Electronically signed by: Hossein Gan DO 05/11/2024 08:00 PM [facility]
--- NOTE | 2024-05-11 19:31 | ED_ITS ---
HPI - General Adult General Chief complaint: Stroke Stated complaint: STROKE ALERT Time Seen by Provider: 05/11/24 19:31 History of Present Illness ED Provider: Alin THRASHER narrative: The patient is a 73-year-old woman who is [place] Citizen-speaking only. She arrived by ambulance. Apparently about an hour prior to arrival she was noted to have left facial droop and left arm weakness. Her family called 911 and she was brought to the hospital as a stroke alert. She is primarily [place] Citizen-speaking. She is not complaining of a headache. She is complaining of some dizziness. There has been no fever, sweats, chills. No chest pain. No shortness of breath. No trauma. The patient is not on anticoagulation. She is on antihypertensive medications. Related Data Home Medications ?Medication ?Instructions ?Recorded ?Confirmed amlodipine 5 mg tablet 5 mg PO DAILY 12/10/21 12/10/21 atenolol 50 mg-chlorthalidone 25 1 tab PO DAILY 12/10/21 12/10/21 mg tablet Previous Rx's ?Medication ?Instructions ?Recorded cephalexin 500 mg capsule 500 mg PO QID #28 caps 12/12/21 Allergies Allergy/AdvReac Type Severity Reaction Status Date / Time No Known Allergies Allergy Verified 05/11/24 19:56 Review of Systems 2 Review of Systems: Yes all other systems are reviewed and are negative [facility] Past Medical History Medical History (Updated 05/11/24 @ 21:42 by Vinny Campbell NP) Prediabetes HLD (hyperlipidemia) Surgical History (Updated 12/10/21 @ 16:28 by Khoa Cline MD) No pertinent past surgical history Social History Social History (Updated 12/10/21 @ 16:28 by Khoa Cline MD) Household Members: Spouse Housing: Apartment Do you presently have visiting nurse or other home services: Yes ([facility]/MULTIMEDIA EDITOR) Alcohol intake: never Patient Tobacco Use Status: Never used Tobacco Smoked in Last 30 Days: No e-Cigarette/Vaping Use: Never Used Use of substances other than those prescribed or required for medical reasons: No Currently Displaying Signs/Symptoms of Drug Intoxication Withdrawal: No Have you been hit, kicked, punched, or otherwise hurt by someone within the past year? If so, by whom?: No Do you feel safe in your current relationship?: Yes Is there a partner from a previous relationship who is making you feel unsafe now?: No Are you made to feel afraid or neglected: No Anabaptism Healthcare Practices: Yarsani Advance Directives: No Advance Directives Information Provided: No Do you have a plan to hurt others: No Plan Recently lost weight without trying: No Eating poorly because of decreased appetite: No Nutrition Risks: On aspiration precautions and Recent weight gain Patient : No : No Poor oral hygiene: No Physical Exam ED Vital Signs: Vital Signs - 24 hr 05/11/24 19:59 05/11/24 20:16 05/11/24 20:24 Pulse Rate 67 66 Respiratory Rate 24 H Blood Pressure 189/94 H 192/100 H 175/99 H Pulse Oximetry 96 Oxygen Delivery Method Room Air 05/11/24 20:38 Pulse Rate 62 Respiratory Rate 16 Blood Pressure 149/102 H Pulse Oximetry 94 Oxygen Delivery Method Room Air BMI result Body Mass Index 33.3 Const Other: The patient is a 73-year-old woman who seemed awake but seemed to be looking primarily to the right side. She could be encouraged to look forward or to the left but for the most part she seemed to have a right gaze preference. HENMT Other: Possibly a minimal left-sided facial weakness. This was subtle and equivocal. Eyes Other: The patient has a right gaze preference but she was able to over, to look at the left. I felt she had a left-sided visual field deficit (hemianopsia). Neck Neck: Yes full ROM Resp Effort & Inspection: normal respiratory effort Auscultation: clear to auscultation bilaterally Cardio Rate: regular rate Rhythm: regular rhythm Heart sounds: S1 normal heart sound present and S2 normal heart sound present GI Other: Abdomen is soft and nontender Skin Other: Skin is pale and dry Neuro Other: The patient is awake and follows commands. She seems to have preference to look to the right. She is oriented and follows commands. May be a slight left- sided facial weakness. There is left pronator drift and left leg weakness. I think there is a left hemianopsia. I think there is some left-sided neglect. NIH stroke scale is about 9. Extrem Other: No peripheral edema Medications Administered Generic Name Dose Route Start Last Admin Trade Name Freq PRN Reason Stop Dose Admin Sodium Chloride 3 ml 05/12/24 00:00 05/11/24 22:55 0.9 % Sodium Chloride Flush 3 Ml Syringe IVFLUSH 3 ml QSHIFT GENESIS Administration Discontinued Medications Generic Name Dose Route Start Last Admin Trade Name Yandel PRN Reason Stop Dose Admin Iohexol 70 ml 05/11/24 20:04 05/11/24 20:04 Iohexol 350 Mg/Ml 100 Ml Infus..Btl IV 05/11/24 20:05 70 ml ONCE ONE Administration Labetalol HCl 10 mg 05/11/24 20:19 05/11/24 21:20 Labetalol Hcl 100 Mg/20 Ml Vial IVPUSH 05/11/24 20:20 Not Given ONCE ONE Labetalol HCl 10 mg 05/11/24 21:40 05/11/24 21:54 Labetalol Hcl 100 Mg/20 Ml Vial IVPUSH 05/11/24 21:41 10 mg ONCE ONE Administration Lidocaine 1 patch 05/11/24 23:16 05/12/24 00:17 Lidocaine 4 % Patch Adh..Patch TRANSDERMA 05/11/24 23:17 1 patch ONCE ONE Administration Protocol Tenecteplase 22 mg 05/11/24 20:17 05/11/24 20:25 Tenecteplase 50 Mg/10 Ml Kit IVPUSH 05/11/24 20:18 22 mg ONCE ONE Administration Medical Decision Making Medical Decision Making [facility] Narrative: The patient is a 73-year-old female with a history of hypertension who presents with the abrupt onset left-sided weakness that began at around 6:30PM this evening. She was with her family at the time and the timing of the onset of symptoms seems fairly certain. Family seems quite positive that the patient had an abrupt change in her function. The patient was clearly showing signs of left-sided weakness and neglect consistent with a probable stroke. She was made a code stroke and when promptly to the CT scan for a noncontrast head CT and CT angiogram of the head and neck. The noncontrast head CT showed no acute hemorrhage. There are a lot of changes likely secondary to chronic hypertension and the radiologist felt there was the possibility that there were findings consistent with posterior reversible encephalopathy syndrome. At the time that the radiologist spoke to me about the noncontrast head CT he also told me that he did not feel there was any large vessel occlusion that could be addressed by catheter intervention. I spoke to Dr. Land felt that although the changes on the noncontrast head CT consistent with chronic hypertension might increase the risk of bleeding associated with thrombolytics patient is still meets criteria for treatment with thrombolytic therapy. I then spoke to the patient and her daughter using a [place] Citizen technical producer. I explained that the patient seemed to be having a stroke causing left-sided weakness and left-sided neglect. I explained that she presented early enough to be considered for thrombolytic therapy and there are no clear contraindications. I explained that the patient's risk of bleeding as a result of thrombolytic therapy might be higher than the 5% figure usually cited has a risk of bleeding. Despite this the patient and the daughter agreed that we should proceed with thrombolytics. The patient's blood pressure was 175/99. TNK was given at 8:25PM. The patient was then admitted to the intensive care unit. Lab Data 05/11/24 20:09 05/11/24 20:09 Labs: Lab Results 05/11/24 05/11/24 05/11/24 Range/Units 19:45 19:51 20:09 WBC 5.8 (4.8-10.8) X10*3/uL RBC 4.79 (4.20-5.50) X10*6/uL Hgb 13.7 (12.0-16.0) g/dl Hct 39.1 (37.0-47.0) % MCV 81.6 (80.0-98.0) fL MCH 28.6 (27.0-33.0) pg MCHC 35.0 (31.0-35.0) g/dl RDW 13.8 (11.0-16.0) % Plt Count 165 (160-400) X10*3/uL MPV 9.8 (9.4-12.3) fL Immature Gran % (Auto) 0.5 H (0.0-0.4) % Neut % (Auto) 73.5 H (45-73) % Lymph % (Auto) 19.3 L (20-40) % [place] % (Auto) 5.7 (2-11) % Eos % (Auto) 0.7 (0-4) % Baso % (Auto) 0.3 (0-2) % Lymph # (Auto) 1.1 L (1.2-4.9) X10*3/uL [place] # (Auto) 0.3 (0.1-1.2) X10*3/uL Eos # (Auto) 0.0 (0.0-0.4) X10*3/uL Baso # (Auto) 0.0 (0.0-0.2) X10*3/uL Abs Immat Gran (auto) 0.03 (0.00-0.03) X10*3/uL Absolute Neuts (auto) 4.2 (2.0-8.3) x10*3/uL Absolute Nucleated RBC 0.000 (0.0-0.012) X10*3/uL Nucleated RBC % (auto) 0.0 (0.0-0.2) /100WBC PT 11.9 (10.9-12.4) SEC Whole Blood PT 11.9 (11.1-13.5) sec INR 1.0 (0.9-1.1) Whole Blood INR 1.0 (0.9-1.1) APTT 32.1 (26.0-36.8) SEC Sodium 137 (135-145) mmol/L Potassium 3.9 (3.3-5.1) mmol/L Chloride 105 (96-108) mmol/L Carbon Dioxide 25 (22-29) mmol/L Anion Gap 11 L (12-20) BUN 9 (9-16) mg/dL Creatinine 0.65 (0.5-1.4) mg/dL Estim Creat Clear Calc 82.7 Estimated GFR > 60 POC Glucose 136 H (60-115) mg/dL Random Glucose 130 H (60-115) mg/dL Calcium 9.0 (8.4-10.2) mg/dL Troponin I High Sens < 2.7 (<3.5-17.0) ng/L Triglycerides 189 H (<150) mg/dL Cholesterol 236 H (<200) mg/dL LDL Cholesterol, Calc 160 H (<100) mg/dL HDL Cholesterol 39 L (>40) mg/dL Independent Interpretation I performed an independent interpretation of an: EKG Interpretation: EKG at 20:22 shows normal sinus rhythm at 61 beats per minute. There are nonspecific ST and T-wave changes. No definite acute ischemic changes. No old EKGs for comparison. Discharge Plan Discharge Clinical Impression: Stroke Patient Disposition: Admitted As Inpatient Discharge Date/Time: 05/11/24 22:45
--- NOTE | 2024-05-11 19:32 | ECG_ITS ---
Test Reason : STROKE Blood Pressure : / mmHG Vent. Rate : 061 BPM Atrial Rate : 061 BPM P-R Int : 148 ms QRS Dur : 092 ms QT Int : 462 ms P-R-T Axes : 022 003 129 degrees QTc Int : 465 ms Normal sinus rhythm Nonspecific ST and T wave abnormality Abnormal ECG No previous ECGs available Referred By: Rodriguez Ogden Electronically Signed By:Carlo Maurice
[2024-05-11 19:56] LABS: Prothrombin Time Whole Bld POC 11.9 sec (11.1-13.5)
[2024-05-11 19:56] LABS: Glucose, Whole Blood 136 mg/dL (60-115)
--- NOTE | 2024-05-11 19:59 | PC.NURSE ---
Pt just finished up in CT scan. Being brought to ED 3 now.
[2024-05-11] MEDS: iohexoL 350 MG/ML 100 ML INFUS..BTL 70 ML IV (20:04)
[2024-05-11 20:12] LABS: MANUAL DIFF FLAG NO
[2024-05-11 20:13] LABS: Basophils Percent Auto 0.3 % (0-2); Eosinophils Percent Auto 0.7 % (0-4); Hematocrit 39.1 % (37.0-47.0); Hemoglobin 13.7 g/dl (12.0-16.0); Imm Gran Abs Auto 0.03 X10*3/uL (0.00-0.03); Imm Gran Pct Auto 0.5 % (0.0-0.4); Lymphocytes Absolute Auto 1.1 X10*3/uL (1.2-4.9); Lymphocytes Percent Auto 19.3 % (20-40); Mean Corpuscular Hemoglobin 28.6 pg (27.0-33.0); Mean Corpuscular Volume 81.6 fL (80.0-98.0); Mean Platelet Volume 9.8 fL (9.4-12.3); Monocytes Absolute Auto 0.3 X10*3/uL (0.1-1.2); Monocytes Percent Auto 5.7 % (2-11); Neutrophils Absolute Auto 4.2 x10*3/uL (2.0-8.3); Neutrophils Percent Auto 73.5 % (45-73); Platelet Count 165 X10*3/uL (160-400); Red Blood Count 4.79 X10*6/uL (4.20-5.50); Red Cell Distribution Width 13.8 % (11.0-16.0); White Blood Count 5.8 X10*3/uL (4.8-10.8)
[2024-05-11 20:19] LABS: Prothrombin Time 11.9 SEC (10.9-12.4)
[2024-05-11 20:21] LABS: Partial Thromboplastin Time 32.1 SEC (26.0-36.8)
[2024-05-11 20:22] LABS: Stroke Lab Use COMPLETE
[2024-05-11] MEDS: Tenecteplase 50 MG/10 ML KIT 22 MG IVPUSH (20:25)
--- NOTE | 2024-05-11 20:25 | PC.NURSE ---
obtained consent for TNK from patient and patient's daughter utilizing kazakh refrigeration installer
[2024-05-11 20:27] LABS: Anion Gap 11 (12-20); Blood Urea Nitrogen 9 mg/dL (9-16); Carbon Dioxide 25 mmol/L (22-29); Chloride 105 mmol/L (96-108); Cholesterol 236 mg/dL (<200); Creatinine Clr Calc Pharmacy 82.7; Estimated Glomerular Filt Rate > 60; Glucose Random 130 mg/dL (60-115); HDL Cholesterol 39 mg/dL (>40); LDL Cholesterol Calculated 160 mg/dL (<100); Potassium 3.9 mmol/L (3.3-5.1); Sodium 137 mmol/L (135-145); Triglycerides 189 mg/dL (<150)
--- NOTE | 2024-05-11 20:29 | PC.NURSE ---
per MD hold off on labetalol as BP is appropriate for TNK administration. reflected in documentation
[2024-05-11 20:37] LABS: Troponin-I High Sensitivity < 2.7 ng/L (<3.5-17.0)
--- NOTE | 2024-05-11 20:54 | PC.NURSE ---
pt assisted to and from bedside commode. Pt still very unsteady and weak on her feet. continues to report feeling left sided arm and leg weakness at this time. pt placed back into bed, on paper guillotine operator, blood pressures cycling. icu DISASTER RECOVERY CONSULTANT at bedside for admission.
--- NOTE | 2024-05-11 20:54 | PC.NURSE ---
pt assisted to and from bedside commode. Pt still very unsteady and weak on her feet. continues to report feeling left sided arm and leg weakness at this time. pt placed back into bed, on residential monitor, blood pressures cycling. PA BLOOD SPLATTER ANALYST at bedside for admission.
--- NOTE | 2024-05-11 21:19 | PM.CCHP ---
History of Present Illness Date of Service: 05/11/24 Attending physician on admission: Stanley Blake Chief Complaint: Stroke alert ?The patient is a 73-year-old female Chadian speaking only with history of hypertension who arrived to the emergency department? via EMS? as a stroke alert.? According to family member patient developed a left sided facial droop and left arm weakness prior to arrival to the emergency department. ?On arrival to the emergency department,? patient noted to have a significant left-sided facial droop, decreased visual galvez in the left side, left upper extremity weakness with pronator drift,and left lower extremity weakness. CT head? did not show acute bleed,? ED physician consulted Neurology,? Dr. Land, who agrees with TNK administration. TNK administer at 2024.? ? Post TNK,? patient continued to similar symptoms,? but some improvement in left lower extremity weakness.? Review of Systems Review of Systems: Yes all other systems are reviewed and are negative PMFSH Past Medical History Medical History (Updated 05/11/24 @ 21:42 by Vinny Campbell NP) Prediabetes HLD (hyperlipidemia) Surgical History Surgical History (Updated 12/10/21 @ 16:28 by Khoa Cline MD) No pertinent past surgical history Social History Social History (Updated 12/10/21 @ 16:28 by Khoa Cline MD) Household Members: Spouse Housing: Apartment Do you presently have visiting nurse or other home services: Yes ([facility]/PHOTOENGRAVING PROOFER) Alcohol intake: never Patient Tobacco Use Status: Never used Tobacco Smoked in Last 30 Days: No e-Cigarette/Vaping Use: Never Used Use of substances other than those prescribed or required for medical reasons: No Currently Displaying Signs/Symptoms of Drug Intoxication Withdrawal: No Have you been hit, kicked, punched, or otherwise hurt by someone within the past year? If so, by whom?: No Do you feel safe in your current relationship?: Yes Is there a partner from a previous relationship who is making you feel unsafe now?: No Are you made to feel afraid or neglected: No Religion Healthcare Practices: Cheondoism Advance Directives: No Advance Directives Information Provided: No Do you have a plan to hurt others: No Plan Recently lost weight without trying: No Eating poorly because of decreased appetite: No Nutrition Risks: On aspiration precautions and Recent weight gain Patient : No : No Poor oral hygiene: No Meds Allergies Allergy/AdvReac Type Severity Reaction Status Date / Time No Known Allergies Allergy Verified 05/11/24 19:56 Active Medications: Current Medications Sodium Chloride (0.9 % Sodium Chloride Flush 3 Ml Syringe) 3 ml IVFLUSH QSHIFT [facility] Home Medications ?Medication ?Instructions ?Recorded ?Confirmed ?Last Taken ?Type alendronate 70 mg tablet 70 mg PO QWEEK 05/12/24 05/12/24 Unknown History amlodipine 5 mg tablet 5 mg PO DAILY 05/12/24 05/12/24 Unknown History atenolol 50 mg-chlorthalidone 25 1 tab PO DAILY 05/12/24 05/12/24 Unknown History mg tablet cholecalciferol (vitamin D3) 25 25 mcg PO DAILY 05/12/24 05/12/24 Unknown History mcg (1,000 unit) capsule (Vitamin D3) cyanocobalamin (vitamin B-12) 500 500 mcg PO DAILY 05/12/24 05/12/24 Unknown History mcg tablet Physical Exam Vital Signs: Vital Signs: Last Vital Signs Pulse 62 05/11/24 21:18 Resp 16 05/11/24 21:18 BP 174/85 H 05/11/24 21:18 Pulse Ox 95 05/11/24 21:18 O2 Del Method Room Air 05/11/24 21:18 BMI result Body Mass Index 33.3 Constitutional: No acute distress, well-developed, alert and oriented x 3 HEENT: No hearing loss, sneezing, congestion, runny nose or sore throat. No vision change or blurred vision////Head is normocephalic, atraumatic, pupils equal round reactive to light accommodation bilaterally.? Extraocular movements appear intact.? Buccal mucosa is dry, Neck is supple Respiratory:? Lung CTA bilaterally, no wheezes, rhonchi, or rales Cardiac: RRR, +S1/S2, no murmurs/rubs, pulses palpable and equal in all extremities Gastrointestinal: +BS, non-tender to palpation, non-distended Neurologic:? Neurological exam,? The patient is alert, attentive, and oriented. Speech appears to be clear. There is left sided facial droop Motor:There is a pronator drift of the out-stretched left arm. Weakness of the left upper extremity compared to the right. Left lower extremity with mild weakness compared to right. Muscle bulk and tone are normal. Sensory:Decreased sensation to left sided upper extremity.? Coordination: Rapid alternating movements and fine finger movements are intact on right side. There are no abnormal or extraneous movements.? Skin: No rashes or lesions. No petechiae or purpura. Trace pitting edema of lower extremities. Musculoskeletal: No cyanosis or clubbing. No gross deformities. Normal range of motion. Heme/Lymphatics/Immun: Palpation of neck reveals no swelling or tenderness of neck nodes. Psychiatric: Normal mood and affect Results Labs 05/12/24 05:03 05/12/24 05:03 Labs: Laboratory Results - last 24 hr 05/11/24 05/11/24 05/11/24 19:45 19:51 20:09 MCV 81.6 MCH 28.6 MCHC 35.0 RDW 13.8 Plt Count 165 MPV 9.8 Immature Gran % (Auto) 0.5 H Neut % (Auto) 73.5 H Lymph % (Auto) 19.3 L [place] % (Auto) 5.7 Eos % (Auto) 0.7 Baso % (Auto) 0.3 Lymph # (Auto) 1.1 L [place] # (Auto) 0.3 Eos # (Auto) 0.0 Baso # (Auto) 0.0 Abs Immat Gran (auto) 0.03 Absolute Neuts (auto) 4.2 Absolute Nucleated RBC 0.000 Nucleated RBC % (auto) 0.0 PT 11.9 Whole Blood PT 11.9 INR 1.0 Whole Blood INR 1.0 APTT 32.1 Anion Gap 11 L Estim Creat Clear Calc 82.7 Estimated GFR > 60 POC Glucose 136 H Random Glucose 130 H Calcium 9.0 Troponin I High Sens < 2.7 Triglycerides 189 H Cholesterol 236 H LDL Cholesterol, Calc 160 H HDL Cholesterol 39 L Imaging Radiologist's Impressions: Impressions Head CT 05/11/24 19:32 IMPRESSION: 1. Extensive underlying white matter disease. Apparent regions of cortical hypoattenuation within the bilateral occipital lobes. This appearance is nonspecific and could be seen in the setting of GRINDER SET UP OPERATOR CENTERLESS territory infarcts. However, the overall appearance may be more fitting of an underlying vasoreactive syndrome such as posterior reversible encephalopathy syndrome (PRES). 2. No evidence of acute intracranial hemorrhage. 3. Potential 1.1 cm aneurysm projecting to the left of the mid basilar artery. This will be better characterized on concurrent CTA of the head. This critical result was discussed with Dr. Rodriguez Ogden at 19:52 on 05/11/2024 and it was ascertained that the content and urgency of the report was understood at the time of direct communication. Electronically signed by: Hossein Gan DO 05/11/2024 08:00 PM [facility] Assessment and Plan (1) Stroke: Status: Acute (2) Hypertensive emergency: Status: Acute Plan Neuro: CVA-? patient initially with left-sided facial droop and left extremity weakness. Head/neck CTA? 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 Moderate stenosis of the P2 segment of the left GRINDER SET UP OPERATOR CENTERLESS. Neurology consulted by ED? physician and advise for TNK administration.? Now status post TNK administration,? continues to have left-sided facial droop and left upper extremity weakness,? mild improvement in left lower extremity weakness.? Will follow neurology recommendations. Follow post TNK protocol.? Avoid hypotension.? Cardiac:?Hypertensive? emergency:? underlying history of hypertension,? ? blood pressures? systolic in the 200s,? Will give atenolol.? Continue? closely monitor blood pressures? Pulmonary: No acute issues. Renal:? ? no acute issues Endo:? No acute issues.? GI: No acute issues. heme/onc: No acute issues. Misc:? no acute issues DVT: No DVT anticoagulation for 24hr post TNK? Diet:? NPO per protocol? Critical care time: x 30 min? Case discussed with? attending Dr. Blake?
[2024-05-11] MEDS: Labetalol HCL 100 MG/20 ML VIAL 10 MG IVPUSH (21:54)
--- NOTE | 2024-05-11 22:41 | PC.NURSE ---
report given to Johanne BRANTLEY in ICU
[2024-05-11] MEDS: 0.9 % Sodium Chloride Flush 3 ML SYRINGE IVFLUSH (22:55)
[2024-05-12] VITALS (29 sets, daily range): BP systolic 135–173; BP diastolic 61–108; PULSE 60–85; RESP 12–26; TEMP 36.9–37.1; O2SAT 91–95; BMI 32.2
[2024-05-12] MEDS: Lidocaine 4 % Patch ADH..PATCH 1 PATCH TRANSDERMA (00:17)
[2024-05-12 05:47] LABS: MANUAL DIFF FLAG NO
[2024-05-12 05:48] LABS: Basophils Percent Auto 0.1 % (0-2); Eosinophils Absolute Auto 0.1 X10*3/uL (0.0-0.4); Eosinophils Percent Auto 1.1 % (0-4); Hematocrit 42.1 % (37.0-47.0); Hemoglobin 14.5 g/dl (12.0-16.0); Imm Gran Abs Auto 0.02 X10*3/uL (0.00-0.03); Imm Gran Pct Auto 0.3 % (0.0-0.4); Lymphocytes Absolute Auto 1.2 X10*3/uL (1.2-4.9); Lymphocytes Percent Auto 15.3 % (20-40); Mean Corpuscular HGB Conc 34.4 g/dl (31.0-35.0); Mean Corpuscular Hemoglobin 28.3 pg (27.0-33.0); Mean Corpuscular Volume 82.2 fL (80.0-98.0); Mean Platelet Volume 10.4 fL (9.4-12.3); Monocytes Absolute Auto 0.6 X10*3/uL (0.1-1.2); Monocytes Percent Auto 7.8 % (2-11); Neutrophils Percent Auto 75.4 % (45-73); Platelet Count 171 X10*3/uL (160-400); Red Blood Count 5.12 X10*6/uL (4.20-5.50); Red Cell Distribution Width 13.7 % (11.0-16.0)
[2024-05-12 06:08] LABS: Cholesterol 243 mg/dL (<200); HDL Cholesterol 40 mg/dL (>40); LDL Cholesterol Calculated 162 mg/dL (<100); Triglycerides 205 mg/dL (<150)
[2024-05-12 06:09] LABS: Alanine Aminotransferase 17 U/L (0-31); Albumin Level 4.2 g/dL (3.5-5.0); Alkaline Phosphatase 69 U/L (39-117); Anion Gap 13 (12-20); Aspartate Amino Transferase 20 U/L (5-31); Bilirubin Total 0.7 mg/dL (0.0-1.0); Blood Urea Nitrogen 8 mg/dL (9-16); Calcium 8.5 mg/dL (8.4-10.2); Carbon Dioxide 24 mmol/L (22-29); Chloride 105 mmol/L (96-108); Creatinine Clr Calc Pharmacy 86.6; Estimated Glomerular Filt Rate > 60; Glucose Random 115 mg/dL (60-115); Potassium 3.1 mmol/L (3.3-5.1); Sodium 139 mmol/L (135-145); Total Protein 7.4 g/dL (6.5-8.0)
--- NOTE | 2024-05-12 07:33 | PC.NURSE ---
Patient admitted to ICU for stroke protocol from ED at ~22:45 s/p TNK. A&Ox4. Primarily [place] Speaking. 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 +Perrla 3mm brisk, conjugate gaze. Follows commands. Tongue is midline. Speech is clear, smile is symmetrical. Denies vision changes or dizziness. C/o mild headache that pt indicated at area of right amish on arrival. Of note, the pt was also hypertensive after arrival with rolling to change bedding. HORACE Campbell was notified of both. Headache has since resolved per pt report. The pt moves all extremities spontaneously and to command, +dorsiflexion and plantarflexion. LUE and LLE with mild weakness, LLE greater than LUE, though LUE improved. Of note, pt reports left knee pain with movement for the last three weeks, though denies fall or trauma hx to the knee. Discussed with INSTRUMENT WORKER, lidocaine patch ordered and applied with +effect per pt. SB upper 50?s to-NSR 60?s on tele. Pt denies chest pain, palpitations, dizziness, n/v. +radial and dp/pt pulses, +cms. -edema. Denies trouble breathing. Breathing is observed even and unlabored without distress on RA. The patient passed the bedside nursing swallow without issue. Discussed with INSTRUMENT WORKER. Cardiac diet ordered, tolerating without n/v. Pt refusing purewick. HORACE Campbell okay for OOB to commode, requires 2+ max assist due to LLE pain/weakness. PT consult in place per protocol. Bed alarm on and safety measures in place. Plan of care continues. Please see MAR, vitals, and assessments full details. Handoff report given to oncoming RN.
[2024-05-12 07:45] LABS: Glucose, Whole Blood 146 mg/dL (60-115)
[2024-05-12] MEDS: Potassium Chloride Packet 20 MEQ PACKET 40 MEQ PO (07:51)
[2024-05-12] MEDS: 0.9 % Sodium Chloride Flush 3 ML SYRINGE IVFLUSH ×3 (07:54→23:26)
[2024-05-12] MEDS: Acetaminophen Oral Liquid 650 MG/20.3 ML SOLUTION PO (09:38)
--- NOTE | 2024-05-12 11:18 | PHA.MEDREC ---
Pharmacy Consult ? Medication Reconciliation Pharmacy has completed the medication reconciliation. Spoke to patients daughter who confirmed patient to be on two blood pressure medications . [facility]. I looked into patients medical record and noticed patients pharmacy use to be [facility] ([phone]), called the pharmacy on a whim and looks like this is patient current pharmacy. Pharmacist Tommy was able to confirm patients medications, all last picked up on 04/22/24.
--- NOTE | 2024-05-12 11:22 | P.PNCC_ITS ---
Subjective Subjective Date of Service: 05/12/24 Interval History: 73-year-old lady with underlying history of hypertension admitted on 05/11/2024 with acute CVA symptomatic with left-sided facial droop, left sided visual field deficit, and left upper extremity/lower extremity weakness. Neurology service consulted in the emergency room and TNK administration was advised. Patient received TNK with some improvement her symptoms and was admitted to intensive 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 No events overnight. Critical Care Time (minutes): 0 Physical Exam 2 Vital Signs: Vital Signs: Last Vital Signs Temp 98.5 F 05/12/24 08:00 Pulse 72 05/12/24 11:00 Resp 18 05/12/24 11:00 BP 165/92 H 05/12/24 11:00 Pulse Ox 92 05/12/24 11:00 O2 Del Method Nasal Cannula 05/12/24 11:00 O2 Flow Rate 4 05/12/24 11:00 BMI result Body Mass Index 32.2 Const: General: no acute distress, alert and awake Eyes: Sclerae: sclerae normal EOM: EOMs intact bilaterally Neck: Neck: Yes no lymphadenopathy, Yes trachea midline and Yes supple Resp: Effort & Inspection: normal respiratory effort and no respiratory distress Auscultation: clear to auscultation bilaterally Cardio: Rate: regular rate Rhythm: regular rhythm Heart sounds: no gallops, no murmurs and no rubs GI: Palpation (GI): Soft to palpation and Other GI palpation findings present ( Nontender) Auscultation: normal bowel sounds Neuro: Other: Personal plegia of left upper extremity, left lower extremity strength 3/5, partial left hemianopsia Extrem: General: Yes no pedal edema, No clubbing and No cyanosis Objective Data Labs 05/12/24 05:03 05/12/24 05:03 Labs: Laboratory Results - last 24 hr 05/11/24 05/11/24 05/11/24 19:45 19:51 20:09 WBC 5.8 RBC 4.79 Hgb 13.7 Hct 39.1 MCV 81.6 MCH 28.6 MCHC 35.0 RDW 13.8 Plt Count 165 MPV 9.8 Immature Gran % (Auto) 0.5 H Neut % (Auto) 73.5 H Lymph % (Auto) 19.3 L Barnwell % (Auto) 5.7 Eos % (Auto) 0.7 Baso % (Auto) 0.3 Lymph # (Auto) 1.1 L Barnwell # (Auto) 0.3 Eos # (Auto) 0.0 Baso # (Auto) 0.0 Abs Immat Gran (auto) 0.03 Absolute Neuts (auto) 4.2 Absolute Nucleated RBC 0.000 Nucleated RBC % (auto) 0.0 PT 11.9 Whole Blood PT 11.9 INR 1.0 Whole Blood INR 1.0 APTT 32.1 Sodium 137 Potassium 3.9 Chloride 105 Carbon Dioxide 25 Anion Gap 11 L BUN 9 Creatinine 0.65 Estim Creat Clear Calc 82.7 Estimated GFR > 60 POC Glucose 136 H Random Glucose 130 H Calcium 9.0 Total Bilirubin AST ALT Alkaline Phosphatase Troponin I High Sens < 2.7 Total Protein Albumin Triglycerides 189 H Cholesterol 236 H LDL Cholesterol, Calc 160 H HDL Cholesterol 39 L 05/12/24 05/12/24 05:03 07:40 WBC 8.0 RBC 5.12 Hgb 14.5 Hct 42.1 MCV 82.2 MCH 28.3 MCHC 34.4 RDW 13.7 Plt Count 171 MPV 10.4 Immature Gran % (Auto) 0.3 Neut % (Auto) 75.4 H Lymph % (Auto) 15.3 L Barnwell % (Auto) 7.8 Eos % (Auto) 1.1 Baso % (Auto) 0.1 Lymph # (Auto) 1.2 Barnwell # (Auto) 0.6 Eos # (Auto) 0.1 Baso # (Auto) 0.0 Abs Immat Gran (auto) 0.02 Absolute Neuts (auto) 6.0 Absolute Nucleated RBC 0.000 Nucleated RBC % (auto) 0.0 PT Whole Blood PT INR Whole Blood INR APTT Sodium 139 Potassium 3.1 L D Chloride 105 Carbon Dioxide 24 Anion Gap 13 BUN 8 L Creatinine 0.61 Estim Creat Clear Calc 86.6 Estimated GFR > 60 POC Glucose 146 H Random Glucose 115 Calcium 8.5 Total Bilirubin 0.7 AST 20 ALT 17 Alkaline Phosphatase 69 Troponin I High Sens Total Protein 7.4 Albumin 4.2 Triglycerides 205 H Cholesterol 243 H LDL Cholesterol, Calc 162 H HDL Cholesterol 40 L Progress Note: A&P Assessment and plan (1) Hypertension: Status: Acute (2) Stroke: Status: Acute Plan Assessment: 73-year-old lady admitted with acute CVA, now status post TNK with some, but incomplete improvement in her left-sided deficits Plan: Neuro: Acute CVA status post TNK with partial improvement in left-sided deficits. Nephrology service care appreciated. MRI is pending. Cardiac: No acute issues. Pulmonary: No acute issues. Renal: No acute issues. Endo: No acute issues. GI: No acute issues. ID: No acute issues Heme/Onc: No acute issues. Psych: No acute issues. Miscellaneous: No acute issues. Prophylaxis: Pneumatic compression Diet: Pending swallow evaluate Quality Stroke Does the patient have a stroke diagnosis?: Yes Reason for No Anti-thrombotic by Day Two: N/A - Med Ordered VTE Prior VTE?: No VTE Risk Level:: Medical - moderate - high VTE Device Contraindication: N/A - Device Ordered VTE Drug Contraindication: Treatment Not Indicated
[2024-05-12 11:49] LABS: Glucose, Whole Blood 144 mg/dL (60-115)
--- NOTE | 2024-05-12 12:27 | MHC.CM.PN ---
Addendum entered by Beth Wills RN 05/12/24 12:32: PT S/P STROKE AND TPK, DISPO PENDING SPEECH/OT/PT. 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 PT REPOORTS HER PCP IS AT [employer] HOWEVER ONLY REMEMBERS HER FIRST NAME WHICH IS MINDI, PT BELIEVES HER DTR IS HER HCP HOWEVER UNSURE IF THERE IS A COPY AT [employer] [facility].
[2024-05-12] MEDS: Acetaminophen 325 MG TABLET 650 MG PO (17:00)
[2024-05-12 18:38] LABS: Glucose, Whole Blood 118 mg/dL (60-115)
[2024-05-12 20:59] LABS: Glucose, Whole Blood 126 mg/dL (60-115)
[2024-05-13] VITALS (12 sets, daily range): BP systolic 121–173; BP diastolic 58–95; PULSE 64–88; RESP 10–18; TEMP 36.2–37.6; O2SAT 90–95; BMI 30.5
[2024-05-13 05:28] LABS: MANUAL DIFF FLAG NO
[2024-05-13 05:30] LABS: Basophils Percent Auto 0.3 % (0-2); Eosinophils Absolute Auto 0.2 X10*3/uL (0.0-0.4); Eosinophils Percent Auto 2.5 % (0-4); Hematocrit 41.2 % (37.0-47.0); Imm Gran Abs Auto 0.03 X10*3/uL (0.00-0.03); Imm Gran Pct Auto 0.4 % (0.0-0.4); Lymphocytes Absolute Auto 1.4 X10*3/uL (1.2-4.9); Lymphocytes Percent Auto 19.2 % (20-40); Mean Corpuscular Hemoglobin 27.9 pg (27.0-33.0); Mean Corpuscular Volume 82.2 fL (80.0-98.0); Mean Platelet Volume 10.6 fL (9.4-12.3); Monocytes Absolute Auto 0.6 X10*3/uL (0.1-1.2); Neutrophils Absolute Auto 4.9 x10*3/uL (2.0-8.3); Neutrophils Percent Auto 68.6 % (45-73); Platelet Count 160 X10*3/uL (160-400); Red Blood Count 5.01 X10*6/uL (4.20-5.50); White Blood Count 7.1 X10*3/uL (4.8-10.8)
[2024-05-13 05:47] LABS: Anion Gap 14 (12-20); Blood Urea Nitrogen 12 mg/dL (9-16); Calcium 8.9 mg/dL (8.4-10.2); Carbon Dioxide 23 mmol/L (22-29); Chloride 106 mmol/L (96-108); Creatinine Clr Calc Pharmacy 68.6; Estimated Glomerular Filt Rate > 60; Glucose Random 121 mg/dL (60-115); Magnesium 2.2 mg/dL (1.6-2.6); Phosphorus 2.6 mg/dL (2.7-4.5); Potassium 3.5 mmol/L (3.3-5.1); Sodium 139 mmol/L (135-145)
--- NOTE | 2024-05-13 07:00 | CA_ITS ---
Transthoracic Echocardiogram Patient (Last, First, Middle): Monique Sheets, Gender: Female Date of : 1950 Age: 73 Procedure Date: 05/13/2024 Procedure Type: Transthoracic Echocardiogram Location: ICU Height: 162.56 cm Weight: 80.29 kg BSA: 1.86 m2 Heart Rate: 77 bpm BP: 153 / 92 mmHg Gerontology Aide: JACOB Swift MD: Vinny Campbell NP Food Order Delivery Runner: Vaughn Gallagher MD Symptoms: Stroke post TNK Study Quality: Fair w/Contrast ECG Rhythm: Sinus Conclusions: - 1. Technically limited study 2. Normal LV ejection fraction of 60 65% with mild LVH with grade 1 diastolic dysfunction 3. Minimal calcific changes noted on the aortic valve normal cardiac valvular Dopplers 4. Upper limits of normal ascending aortic size Findings Procedure Information Contrast agent, definity, is being given per protocol without apparent complications. Left Ventricle Normal left ventricular size and systolic function. There is mildly increased left ventricular wall thickness. The visually estimated ejection fraction is between 60-65%. Spectral Doppler is indicative of an impaired relaxation filling pattern. E/E prime ratio is <8, consistent with normal filling pressures. Evidence suggests grade I (mild) diastolic dysfunction. Right Ventricle Normal right ventricular cavity size and systolic function. Atria The left atrium is normal in size. Interatrial shunt cannot be excluded. The right atrium was not well visualized. Aortic Valve There is mild calcification of the aortic valve. There is no aortic valve stenosis. There is no aortic valve regurgitation. Mitral Valve Likely normal mitral valve structure and function. There is trace mitral valve regurgitation. There is no mitral valve stenosis. Pulmonic Valve The pulmonic valve was not well visualized. Tricuspid Valve The tricuspid valve was not well visualized. Tricuspid regurgitation envelope is inadequate for calculation of right ventricular systolic pressure. Normal right atrial pressure. Great Vessels The aorta was not well visualized. The pulmonary artery was not well visualized. There is no dilatation of the ascending aorta measuring 3.60 cm. Venous The inferior vena cava is normal in size and collapses greater than 50% with inspiration. Pericardium/Pleural The pericardium was not well visualized. Prior Study Comparison No prior study available for comparison. Measurements 2D Linear Measurements IVSd: 1.33 0.6-0.9/0.6-1.0 cm LVIDd: 3.71 3.9-5.3/4.2-5.9 cm LVIDd Index: 1.99 2.4-3.2/2.2-3.1 cm/m2 LVIDs: 2.53 2.0-3.6 cm LVPWd: 1.15 0.7-1.1 cm LA Diam: 3.40 2.7-3.8/3.0-4.0 cm LAIDs Index: 1.83 1.5-2.3 cm/m2 LV Mass: 193.56 67-162/88-224 g LV Mass Index: 104.06 43-95/49-115 g/m2 LVOT Diam: 1.90 3.0+(-)1.3 cm 2D Systolic Function EF 4C: 63.90 >55% EF 2C: 63.50 >55% EF BiP: 64.70 >55% Mitral Valve MV Pk E: 0.67 MV PK A: 1.06 MV Decel Time: 314.00 E/A: 0.60 E'Lateral: 5.66 E'Medial: 3.26 E/E' Med: 20.50 E/E' Lat: 11.80 PHT: 92.00 MVA PHT: 2.39 Decel [place]: 2.13 Aortic Valve AoV Pk Jakc: 1.54 AoV Mn Jack: 1.06 AoV VTI: 0.27 AoV Pk Grad: 9.00 Aov Mn Grad: 5.00 MACARIO Cont.VTI: 1.86 LVOT LVOT Pk Jack: 0.92 LVOT Mn Jack: 0.64 LVOT VTI: 0.17 LVOT Pk Grad: 3.00 LVOT Mn Grad: 2.00 LVOT Diam: 1.90 LVOT Area: 2.84 Diastolic Function MV Pk E: 0.67 MV Pk A: 1.06 E/A: 0.60 E'Medial: 3.26 E/E' Med: 20.50 E' Laterial: 5.66 E/E' Lat: 11.80 Right Ventricle TAPSE (mm): 21.30 TVS' Jack: 18.50 Great Vessels Aorta Sinus of Valsalva: 3.30 2.0-3.5 cm Ao Asc: 3.60 2.1-3.4 cm Ao Arch: 3.00 Pulmonary Valve PV Pk Jack: 0.99 Peak PV Grad: 4.00 Updated in Other Vendor System with Status of Final Vaughn Gallagher MD electronically signed on 05/13/2024 2:21:44 PM with status of Final
[2024-05-13 08:01] LABS: Glucose, Whole Blood 118 mg/dL (60-115)
--- NOTE | 2024-05-13 08:19 | PM.CCPN ---
Subjective Subjective Date of Service: 05/13/24 Critical Care Time (minutes): 35 Comment: No new events overnight Hemodynamically stable Physical Exam Vital Signs: Vital Signs: Last Vital Signs Temp 97.6 F 05/13/24 08:00 Pulse 78 05/13/24 08:00 Resp 16 05/13/24 08:00 BP 121/58 L 05/13/24 08:00 Pulse Ox 91 L 05/13/24 08:00 O2 Del Method Room Air 05/13/24 08:00 O2 Flow Rate 3 05/12/24 17:00 BMI result Body Mass Index 30.5 General: acute distress, ill appearing and tired appearing Nutritional Appearance: well nourished and overweight Eyes: appearance normal, both eyes and all related structures; Alignment and Position: alignment normal and position normal Neck: No lymphadenopathy, no thyromegaly Resp: bilateral air entry equal, no added sounds present Cardio: Regular rate, regular rhythm; Heart sounds: S1 normal heart sound present and S2 normal heart sound present GI: soft, nontender, no guarding, no hepatosplenomegaly : bladder normal to inspection, bladder normal to palpation, no renal angle tenderness Skin: no rashes or lesions noted and elasticity normal Neuro: oriented to person, oriented to place, oriented to time and moves all extremities, left-sided hemineglect, power 4-in left upper and lower extremities Objective Data Labs 05/13/24 05:21 05/13/24 05:21 Labs: Laboratory Results - last 24 hr 05/12/24 05/12/24 05/12/24 11:41 18:34 20:55 WBC RBC Hgb Hct MCV MCH MCHC RDW Plt Count MPV Immature Gran % (Auto) Neut % (Auto) Lymph % (Auto) [place] % (Auto) Eos % (Auto) Baso % (Auto) Lymph # (Auto) [place] # (Auto) Eos # (Auto) Baso # (Auto) Abs Immat Gran (auto) Absolute Neuts (auto) Absolute Nucleated RBC Nucleated RBC % (auto) Sodium Potassium Chloride Carbon Dioxide Anion Gap BUN Creatinine Estim Creat Clear Calc Estimated GFR POC Glucose 144 H 118 H 126 H Random Glucose Calcium Phosphorus Magnesium 05/13/24 05/13/24 05:21 07:57 WBC 7.1 RBC 5.01 Hgb 14.0 Hct 41.2 MCV 82.2 MCH 27.9 MCHC 34.0 RDW 14.0 Plt Count 160 MPV 10.6 Immature Gran % (Auto) 0.4 Neut % (Auto) 68.6 Lymph % (Auto) 19.2 L [place] % (Auto) 9.0 Eos % (Auto) 2.5 Baso % (Auto) 0.3 Lymph # (Auto) 1.4 [place] # (Auto) 0.6 Eos # (Auto) 0.2 Baso # (Auto) 0.0 Abs Immat Gran (auto) 0.03 Absolute Neuts (auto) 4.9 Absolute Nucleated RBC 0.000 Nucleated RBC % (auto) 0.0 Sodium 139 Potassium 3.5 Chloride 106 Carbon Dioxide 23 Anion Gap 14 BUN 12 Creatinine 0.77 Estim Creat Clear Calc 68.6 Estimated GFR > 60 POC Glucose 118 H Random Glucose 121 H Calcium 8.9 Phosphorus 2.6 L Magnesium 2.2 Progress Note: A&P Assessment and plan (1) Benign essential HTN: Status: Acute (2) Hypertension: Status: Acute (3) Stroke: Status: Acute (4) Obesity: Status: Acute Plan 73-year-old lady with PMH of hypertension admitted on 05/11/2024 with acute CVA symptomatic with left-sided facial droop, left sided visual field deficit, and left upper extremity/lower extremity weakness. Neurology service consulted in the emergency room and TNK administration was advised. Patient received TNK with some improvement her symptoms and was admitted to intensive 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 Blood pressure stable, significant improvement in neuro deficit Continue aspirin and atorvastatin as per Neurology Labs normal We will transfer her to floor Quality Stroke Does the patient have a stroke diagnosis?: Yes Reason for No Anti-thrombotic by Day Two: N/A - Med Ordered VTE Prior VTE?: No VTE Risk Level:: Medical - moderate - high VTE Device Contraindication: N/A - Device Ordered VTE Drug Contraindication: Treatment Not Indicated
--- NOTE | 2024-05-13 08:26 | P.PNIM_ITS ---
Subjective Subjective Date of Service: 05/13/24 Interval History: left sided weakness Physical Exam 2 Vital Signs: Vital Signs: Last Vital Signs Temp 97.6 F 05/13/24 08:00 Pulse 78 05/13/24 08:00 Resp 16 05/13/24 08:00 BP 121/58 L 05/13/24 08:00 Pulse Ox 91 L 05/13/24 08:00 O2 Del Method Room Air 05/13/24 08:00 O2 Flow Rate 3 05/12/24 17:00 BMI result Body Mass Index 30.5 General: acute distress, ill appearing and tired appearing Nutritional Appearance: well nourished and overweight Eyes: appearance normal, both eyes and all related structures; Alignment and Position: alignment normal and position normal Neck: No lymphadenopathy, no thyromegaly Resp: bilateral air entry equal, occasional added sounds present Cardio: Regular rate, regular rhythm; Heart sounds: S1 normal heart sound present and S2 normal heart sound present GI: soft, nontender, no guarding, no hepatosplenomegaly : bladder normal to inspection, bladder normal to palpation, no renal angle tenderness Skin: no rashes or lesions noted and elasticity normal Neuro: oriented to person, oriented to place, oriented to time and moves all extremities Objective Data Active Medications Acetaminophen (Acetaminophen 325 Mg Tablet) 650 mg PO Q6H PRN PRN Reason: Pain, Moderate(Pain Scale 4-6) Last Admin: 05/12/24 17:00 Dose: 650 mg Documented By: TYRONE Aspirin (Aspirin Enteric Coated 81 Mg Tablet.Dr) 81 mg PO DAILY [facility] Atorvastatin Calcium (Atorvastatin Calcium 80 Mg Tablet) 80 mg PO BEDTIME [facility] Sodium Chloride (0.9 % Sodium Chloride Flush 3 Ml Syringe) 3 ml IVFLUSH QSHIFT [facility] Last Admin: 05/12/24 23:26 Dose: 3 ml Documented By: MONA Labs 05/13/24 05:21 05/13/24 05:21 Labs: Laboratory Results - last 24 hr 05/12/24 05/12/24 05/12/24 11:41 18:34 20:55 MCV MCH MCHC RDW Plt Count MPV Immature Gran % (Auto) Neut % (Auto) Lymph % (Auto) [place] % (Auto) Eos % (Auto) Baso % (Auto) Lymph # (Auto) [place] # (Auto) Eos # (Auto) Baso # (Auto) Abs Immat Gran (auto) Absolute Neuts (auto) Absolute Nucleated RBC Nucleated RBC % (auto) Anion Gap Estim Creat Clear Calc Estimated GFR POC Glucose 144 H 118 H 126 H Random Glucose Calcium Phosphorus Magnesium 05/13/24 05/13/24 05:21 07:57 MCV 82.2 MCH 27.9 MCHC 34.0 RDW 14.0 Plt Count 160 MPV 10.6 Immature Gran % (Auto) 0.4 Neut % (Auto) 68.6 Lymph % (Auto) 19.2 L [place] % (Auto) 9.0 Eos % (Auto) 2.5 Baso % (Auto) 0.3 Lymph # (Auto) 1.4 [place] # (Auto) 0.6 Eos # (Auto) 0.2 Baso # (Auto) 0.0 Abs Immat Gran (auto) 0.03 Absolute Neuts (auto) 4.9 Absolute Nucleated RBC 0.000 Nucleated RBC % (auto) 0.0 Anion Gap 14 Estim Creat Clear Calc 68.6 Estimated GFR > 60 POC Glucose 118 H Random Glucose 121 H Calcium 8.9 Phosphorus 2.6 L Magnesium 2.2 Assessment and Plan (1) Stroke: Status: Acute Plan 73F PMH htn, osteoporosis, presented with left hemiparesis, found to have acute 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
[2024-05-13] MEDS: Aspirin Enteric Coated 81 MG TABLET.DR PO (08:41)
[2024-05-13] MEDS: 0.9 % Sodium Chloride Flush 3 ML SYRINGE IVFLUSH ×2 (08:41→16:56)
[2024-05-13 08:49] LABS: Estimated Average Glucose 128 mg/dL; Hemoglobin A1C 155.7481 umol/L; Hemoglobin A1c % 6.1 % (<6.0); Total Hemoglobin (HGBA1C) 3566.6947 umol/L
--- NOTE | 2024-05-13 10:51 | P.CNNE_ITS ---
History of Present Illness Data of Consult Service Date: 05/13/24 Primary Care Provider: Unknown Physician HPI Reason for consult: Stroke 73 years old woman with hypertension who was with family when she suddenly developed left-sided weakness and was brought to emergency room. With initial diagnosis of acute ischemic stroke she was treated with TNK and admitted to ICU. There was no complaint of headache dizziness trauma or alteration of consciousness. When I saw her in ICU she was feeling better was still complaining of left-sided weakness. Review of Systems 2 Review of Systems: No recent cold or flu-like illness or trauma PMFSH Past Medical History Medical History (Updated 05/13/24 @ 10:53 by Tania Land MD) Prediabetes HLD (hyperlipidemia) Surgical History Surgical History No pertinent past surgical history Social History Social History (Updated 12/10/21 @ 16:28 by Khoa Cline MD) Household Members: Spouse Housing: Apartment Do you presently have visiting nurse or other home services: Yes ([facility]) Alcohol intake: never Patient Tobacco Use Status: Never used Tobacco Smoked in Last 30 Days: No e-Cigarette/Vaping Use: Never Used Use of substances other than those prescribed or required for medical reasons: No Currently Displaying Signs/Symptoms of Drug Intoxication Withdrawal: No Have you been hit, kicked, punched, or otherwise hurt by someone within the past year? If so, by whom?: No Do you feel safe in your current relationship?: Yes Is there a partner from a previous relationship who is making you feel unsafe now?: No Are you made to feel afraid or neglected: No Sikhism Healthcare Practices: Yarsani Advance Directives: No Advance Directives Information Provided: No Do you have a plan to hurt others: No Plan Recently lost weight without trying: No Eating poorly because of decreased appetite: No Nutrition Risks: On aspiration precautions and Recent weight gain Patient : No : No Poor oral hygiene: No service: No Meds Allergies Allergy/AdvReac Type Severity Reaction Status Date / Time No Known Allergies Allergy Verified 05/11/24 19:56 Active Medications: Current Medications Acetaminophen (Acetaminophen 325 Mg Tablet) 650 mg PO Q6H PRN PRN Reason: Pain, Moderate(Pain Scale 4-6) Last Admin: 05/12/24 17:00 Dose: 650 mg Aspirin (Aspirin Enteric Coated 81 Mg Tablet.) 81 mg PO DAILY [facility] Last Admin: 05/13/24 08:41 Dose: 81 mg Atorvastatin Calcium (Atorvastatin Calcium 80 Mg Tablet) 80 mg PO BEDTIME [facility] Enoxaparin Sodium (Enoxaparin Sodium 40 Mg/0.4 Ml Syringe) 40 mg SUBCUT Q24H [facility] Sodium Chloride (0.9 % Sodium Chloride Flush 3 Ml Syringe) 3 ml IVFLUSH QSHIFT [facility] Last Admin: 05/13/24 08:41 Dose: 3 ml Home Medications ?Medication ?Instructions ?Recorded ?Confirmed ?Last Taken ?Type alendronate 70 mg tablet 70 mg PO QWEEK 05/12/24 05/12/24 Unknown History amlodipine 5 mg tablet 5 mg PO DAILY 05/12/24 05/12/24 Unknown History atenolol 50 mg-chlorthalidone 25 1 tab PO DAILY 05/12/24 05/12/24 Unknown History mg tablet cholecalciferol (vitamin D3) 25 25 mcg PO DAILY 05/12/24 05/12/24 Unknown History mcg (1,000 unit) capsule (Vitamin D3) cyanocobalamin (vitamin B-12) 500 500 mcg PO DAILY 05/12/24 05/12/24 Unknown History mcg tablet Physical Exam 2 Vital Signs: Vital Signs: Last Vital Signs Temp 97.6 F 05/13/24 08:00 Pulse 78 05/13/24 08:00 Resp 16 05/13/24 08:00 BP 121/58 L 05/13/24 08:00 Pulse Ox 91 L 05/13/24 08:00 O2 Del Method Room Air 05/13/24 08:00 O2 Flow Rate 3 05/12/24 17:00 BMI result Body Mass Index 30.5 Neuro: Other: Mild left hemiparesis and visual field difficulty. Otherwise she was alert and awake working with a phone and talking to someone. Deep tendon reflexes were 2+. Face revealed mild left-sided facial weakness. Results Labs 05/13/24 05:21 05/13/24 05:21 Labs: Short CBC 05/13/24 Range/Units 05:21 WBC 7.1 (4.8-10.8) X10*3/uL Hgb 14.0 (12.0-16.0) g/dl Hct 41.2 (37.0-47.0) % Plt Count 160 (160-400) X10*3/uL BMP 05/13/24 05:21 Sodium 139 Potassium 3.5 Chloride 106 Carbon Dioxide 23 BUN 12 Creatinine 0.77 Calcium 8.9 MRI of brain revealed a moderate sides right posterior cerebral artery area ischemic infarction. Underlying moderate to severe extensive microvascular ischemic changes were noted. No significant large vessel disease was noted. 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 There was no large vessel lesion to treat. Her imaging showed a relatively good size right posterior cerebral artery infarct, which would typically result in left hemianopsia and some weakness. At this time, my recommendation is anti- platelet agent, statin, and blood pressure control with PT OT consultation. She should be advised to not drive because of visual problem. Procedures Date of Service Date of Service: 05/13/24
[2024-05-13 11:41] LABS: Glucose, Whole Blood 117 mg/dL (60-115)
--- NOTE | 2024-05-13 12:28 | MHC.SLORD ---
Speech Language Pathology Order Status: ST visited pt in ICU, pt upright in bed, alert, communicative. Pt greeted ST and requested help with putting hair in elastic, stating 'three times' to instruct. Pt speaking on phone to her daughter Ludmila who translated. Pt c/o increasing numbness in her L face, arm and leg; dtr interpreting pt description as (they) go cold . RN notified and provided care. ST evaluation postponed, pt to be transferred to 4th floor this afternoon. Dtr endorsed pt is intelligible when speaking Mexican. Anomia suspected d/t observed halting nature of pt respones when she spoke to her daughter.
--- NOTE | 2024-05-13 15:36 | MHC.CM.PN ---
PT HAS BEEN DOWNGRADED TO MED-TELE FROM ICU. P.T./O.T. RECOMMEND ACUTE REHAB HOWEVER ALL 3 ARE NOT CONTRACTED WITH PT'S INSURANCE AND WILL NOT AUTH. THIS CM [facility] WHO INFORMED OF WHAT STR'S THAT CONTRACT WITH THIS INSURANCE. BROAD REFERRALS SENT TO CONTRACTED CENTERS. CM ATTEMPTED TO CONTACT DAUGHTER /HCP NICOLE, UNABLE TO REACH X 2 TO DISCUSS CHOICES OF REHABS. COPY OF HCP/MOLST OBTAINED FROM [employer]. CM WILL CONTINUE TO FOLLOW FOR ANY CHANGES TO DC PLAN.
[2024-05-13 16:42] LABS: Glucose, Whole Blood 120 mg/dL (60-115)
[2024-05-13] MEDS: Diclofenac Sodium Delayed Rel 75 MG TABLET.DR PO ×2 (16:53→22:22)
[2024-05-13 21:07] LABS: Glucose, Whole Blood 138 mg/dL (60-115)
[2024-05-14 03:09] VITALS: BP 132/85; PULSE 63; RESP 16; TEMP 36.6; O2SAT 95
[2024-05-14 05:44] VITALS: BMI 31.1
[2024-05-14 08:00] VITALS: BP 140/81; PULSE 66; RESP 18; TEMP 36.3; O2SAT 94
[2024-05-14 08:11] LABS: Glucose, Whole Blood 123 mg/dL (60-115)
[2024-05-14] MEDS: Aspirin Enteric Coated 81 MG TABLET.DR PO (09:03)
[2024-05-14] MEDS: Enoxaparin Sodium 40 MG/0.4 ML SYRINGE SUBCUT (09:03)
--- NOTE | 2024-05-14 09:04 | HO.PM.IMPN ---
Subjective Subjective Date of Service: 05/14/24 Interval History: improving Physical Exam Vital Signs: Vital Signs: Last Vital Signs Temp 97.4 F 05/14/24 08:00 Pulse 66 05/14/24 08:00 Resp 18 05/14/24 08:00 BP 140/81 H 05/14/24 08:00 Pulse Ox 94 05/14/24 08:00 O2 Del Method Room Air 05/14/24 08:00 O2 Flow Rate 3 05/12/24 17:00 BMI result Body Mass Index 31.1 Neuro: Other: Mild left hemiparesis and visual field difficulty. Otherwise she was alert and awake working with a phone and talking to someone. Deep tendon reflexes were 2+. Face revealed mild left-sided facial weakness. Objective Data Active Medications Acetaminophen (Acetaminophen 325 Mg Tablet) 650 mg PO Q6H PRN PRN Reason: Pain, Moderate(Pain Scale 4-6) Last Admin: 05/12/24 17:00 Dose: 650 mg Documented By: TYRONE Aspirin (Aspirin Enteric Coated 81 Mg Tablet.) 81 mg PO DAILY [facility] Last Admin: 05/13/24 08:41 Dose: 81 mg Documented By: YORDY Atorvastatin Calcium (Atorvastatin Calcium 80 Mg Tablet) 80 mg PO BEDTIME [facility] Last Admin: 05/13/24 22:24 Dose: Not Given Documented By: TESSA Non-Admin Reason: Patient Refused Diclofenac Sodium (Diclofenac Sodium Delayed Rel 75 Mg Tablet.) 75 mg PO BID [facility] Last Admin: 05/13/24 22:22 Dose: 75 mg Documented By: TESSA Enoxaparin Sodium (Enoxaparin Sodium 40 Mg/0.4 Ml Syringe) 40 mg SUBCUT Q24H [facility] Sodium Chloride (0.9 % Sodium Chloride Flush 3 Ml Syringe) 3 ml IVFLUSH QSHIFT [facility] Last Admin: 05/14/24 01:50 Dose: Not Given Documented By: TESSA Non-Admin Reason: Patient Asleep Labs 05/13/24 05:21 05/13/24 05:21 Labs: Laboratory Results - last 24 hr 05/13/24 05/13/24 05/13/24 11:38 16:37 20:48 POC Glucose 117 H 120 H 138 H 05/14/24 07:44 POC Glucose 123 H Assessment and Plan (1) Stroke: Status: Acute Plan 73F PMH htn, osteoporosis, presented with left hemiparesis, 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
[2024-05-14] MEDS: 0.9 % Sodium Chloride Flush 3 ML SYRINGE IVFLUSH ×2 (09:10→16:00)
[2024-05-14] MEDS: amLODIPine Besylate 5 MG TABLET PO (09:17)
[2024-05-14] MEDS: atenoloL 50 MG TABLET PO (09:19)
[2024-05-14] MEDS: hydroCHLOROthiazide 25 MG TABLET PO (09:30)
[2024-05-14 11:10] VITALS: BP 119/72; PULSE 97; RESP 18; TEMP 36.2; O2SAT 98
[2024-05-14 11:15] LABS: Glucose, Whole Blood 155 mg/dL (60-115)
--- NOTE | 2024-05-14 12:26 | MHC.CM.PN ---
Addendum entered by Dipika Triplett 05/14/24 16:06: Insurance auth has been obtained for pt to go to [facility], per [facility] they will have an available bed tomorrow 05/15. Per [facility], they would like to be notified when she discharges tomorrow (call Deidre at #[phone]), and also request her discharge summary be faxed to them at [phone]. Original Note: This CM met with pt to discuss discharge plan with the assistance of a virtual [employer] stuffed casing tier via [employer]. Pt would like to go to [facility], local list of bed offers reviewed with pt and she has picked [facility] in [place]. Pt aware that [facility] will need to obtain insurance authorization first.
[2024-05-14 15:28] VITALS: BP 140/80; PULSE 66; RESP 20; TEMP 36.8; O2SAT 94
[2024-05-14 16:36] LABS: Glucose, Whole Blood 112 mg/dL (60-115)
[2024-05-14 19:25] VITALS: BP 141/82; PULSE 75; RESP 16; TEMP 36.6; O2SAT 96
[2024-05-14 20:47] LABS: Glucose, Whole Blood 127 mg/dL (60-115)
[2024-05-14] MEDS: Atorvastatin Calcium 80 MG TABLET PO (21:32)
[2024-05-14] MEDS: Diclofenac Sodium Delayed Rel 75 MG TABLET.DR PO (21:32)
[2024-05-14 23:52] VITALS: BP 124/59; PULSE 68; RESP 16; TEMP 37; O2SAT 94
[2024-05-15] MEDS: 0.9 % Sodium Chloride Flush 3 ML SYRINGE IVFLUSH (00:09)
[2024-05-15 03:27] VITALS: BP 144/80; PULSE 58; RESP 16; TEMP 36.7; O2SAT 95
[2024-05-15 06:00] VITALS: BMI 31.8
[2024-05-15 07:15] VITALS: BP 117/67; PULSE 62; RESP 16; TEMP 36.7; O2SAT 95
[2024-05-15 07:50] LABS: Glucose, Whole Blood 115 mg/dL (60-115)
--- NOTE | 2024-05-15 10:35 | MHC.CM.PN ---
Per [facility] discussion, Patient is medically cleared for dc to [facility] today. Patient will dc to her first choice facility/[facility] today at 3PM, via [facility]. CM spoke with Primary Contact/Son-in-Law/Stanley @ [phone], addressed IMM with him and informed him of the dc plan.
--- NOTE | 2024-05-15 10:41 | MHC.CM.PN ---
DARCI left a detailed message for Deidre from [facility] @ [phone], informing her of the dc plan.
[2024-05-15] MEDS: Aspirin Enteric Coated 81 MG TABLET.DR PO (11:00)
[2024-05-15] MEDS: Cholecalciferol (Vitamin D3) 25 MCG TABLET PO (11:01)
[2024-05-15] MEDS: Diclofenac Sodium Delayed Rel 75 MG TABLET.DR PO (11:01)
[2024-05-15] MEDS: Cyanocobalamin (Vitamin B-12) 500 MCG TABLET PO (11:01)
[2024-05-15 11:02] VITALS: BP 142/83; PULSE 72
[2024-05-15] MEDS: amLODIPine Besylate 5 MG TABLET PO (11:02)
[2024-05-15] MEDS: hydroCHLOROthiazide 25 MG TABLET PO (11:02)
[2024-05-15] MEDS: atenoloL 50 MG TABLET PO (11:02)
[2024-05-15] MEDS: Enoxaparin Sodium 40 MG/0.4 ML SYRINGE SUBCUT (11:08)
[2024-05-15 11:20] VITALS: BP 141/81; PULSE 68; RESP 16; TEMP 36.3; O2SAT 99
[2024-05-15 11:34] LABS: Glucose, Whole Blood 118 mg/dL (60-115)
--- NOTE | 2024-05-15 12:41 | PM.DS ---
DS: Providers Provider Date of Service: 05/15/24 Date of admission: 05/11/24 21:13 Date of discharge: 05/15/24 Primary care physician: John Pina MD Consults: 05/11/24 21:13 Consult to Neurology Routine Consulting Provider: Tania Land Reason for consultation: Stroke post TNK Has provider been notified: Yes DS: Diagnosis Discharge Diagnosis (1) Stroke: Status: Acute (2) Hypertensive emergency: Status: Acute DS: Summary Hospital Course Hospital Course: Admission note HPI ?The patient is a 73-year-old female Romanian speaking only with history of hypertension who arrived to the emergency department? via EMS? as a stroke alert.? According to family member patient developed a left sided facial droop and left arm weakness prior to arrival to the emergency department. ?On arrival to the emergency department,? patient noted to have a significant left-sided facial droop, decreased visual galvez in the left side, left upper extremity weakness with pronator drift,and left lower extremity weakness. CT head? did not show acute bleed,? ED physician consulted Neurology,? Dr. Land, who agrees with TNK administration. TNK administer at 2024.? Post TNK,? patient continued to similar symptoms,? but some improvement in left lower extremity weakness.? Hospital course The patient was admitted for treatment with left-sided facial droop, left sided visual field deficit, and left upper extremity/lower extremity weakness. she received TNK and was monitored in ICU with some improvement her symptoms. started asa, statin with good tolerance as she was evaluated by neurologist. 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 she was seen by OT\PT who recommended acute rehablitation placement. 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 Discharge plan Monitor blood pressure readings and report 1 week to your PCP for further evaluation Start Baby Aspirin daily Start Atorvastatin as prescribed Increase physical activity and lose weight Follow with neurology as needed outpatinet Time Attestation Discharge Coordination Time (in mins): 43 Quality: Safe Use of Opioids Does Pt have an Active Cancer Diagnosis on the Problem List?: No Quality: Stroke Does the patient have a stroke diagnosis?: Yes Reason for No Anti-thrombotic at DC: N/A - Med Ordered Reason for No Anticoagulant at DC: Not indicated Reason Not Initiating IV-Tpa: N/A - Med Ordered Reason for No Anti-thrombotic by Day Two: N/A - Med Ordered Reason for No Statin at DC: N/A - Med Ordered Physical Exam Vital Signs: Vital Signs: Last Vital Signs Temp 97.3 F 05/15/24 11:20 Pulse 68 05/15/24 11:20 Resp 16 05/15/24 11:20 BP 141/81 H 05/15/24 11:20 Pulse Ox 99 05/15/24 11:20 O2 Del Method Room Air 05/15/24 11:20 O2 Flow Rate 3 05/12/24 17:00 BMI result Body Mass Index 31.8 Const: Other: Constitutional : Awake, interactive, not in distress Neck : Normal inspection, Supple Cardiovascular : RRR, no JVP, no lower extremity edema Respiratory : good bilateral air entry, no crackles, wheezes or rhonchi Gastrointestinal: soft, lax, Normal bowel sounds, Non tender Skin : Warm, Dry Neurological : Alert & oriented x3, mild left sided hemiparesis and visual field deficit, mild left-sided facial weakness , CN 2-12 within normal DS: Data Data Completed and Pending Labs on day of discharge: Laboratory Results - last 24 hr 05/14/24 05/14/24 05/15/24 16:33 20:43 07:27 POC Glucose 112 127 H 115 05/15/24 11:28 POC Glucose 118 H Imaging MRI - head: Radiologist's impression: ITS Impressions Head CT 05/11/24 19:32 IMPRESSION: 1. Extensive underlying white matter disease. Apparent regions of cortical hypoattenuation within the bilateral occipital lobes. This appearance is nonspecific and could be seen in the setting of CARDIOVASCULAR OPERATING ROOM NURSE territory infarcts. However, the overall appearance may be more fitting of an underlying vasoreactive syndrome such as posterior reversible encephalopathy syndrome (PRES). 2. No evidence of acute intracranial hemorrhage. 3. Potential 1.1 cm aneurysm projecting to the left of the mid basilar artery. This will be better characterized on concurrent CTA of the head. This critical result was discussed with Dr. Rodriguez Ogden at 19:52 on 05/11/2024 and it was ascertained that the content and urgency of the report was understood at the time of direct communication. Electronically signed by: Hossein Gan DO 05/11/2024 08:00 PM EST RP Head/Neck CTA 05/11/24 19:44 IMPRESSION: 1. Apparent region of cortical hypoattenuation within the right occipital lobe. Occlusion of the P1-P2 junction of the right CARDIOVASCULAR OPERATING ROOM NURSE with partial reconstitution of the distal segments (likely from collateralization). No evidence of acute intracranial hemorrhage. This appearance may represent sequela of acute to subacute CARDIOVASCULAR OPERATING ROOM NURSE territory infarct. Although an underlying vasoreactive syndrome such as posterior reversible encephalopathy syndrome (PRES) could have a similar appearance. 2. Extensive white matter disease and mild generalized cerebral volume loss. 3. 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 4. Moderate stenosis of the P2 segment of the left CARDIOVASCULAR OPERATING ROOM NURSE. Tortuous vessels and overall relative prominence of the anterior and posterior circulation systems. Recommend correlation with potential underlying hypertension. 5. CTA of the head and neck without additional proximal occlusion or flow-limiting stenosis. This critical result was discussed with Dr. Rodriguez Ogden at 19:52 on 05/11/2024 and it was ascertained that the content and urgency of the report was understood at the time of direct communication. Electronically signed by: Hossein Gan DO 05/11/2024 10:32 PM EST RP Brain MRI 05/12/24 17:48 IMPRESSION: 1. Evolving acute right CARDIOVASCULAR OPERATING ROOM NURSE territory infarct. No evidence of hemorrhagic transformation. 2. Extensive underlying microangiopathy and generalized cerebral volume loss. Chronic lacunar infarcts of the deep nuclei and cerebellum. 3. 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 Electronically signed by: Hossein Gan DO 05/12/2024 07:13 PM EST RP Discharge Plan Discharge Anticipated Discharge Date/Time: 05/15/24 12:36 Patient Disposition: [facility] Discharge Diagnosis: Acute stroke Hypertension Referrals: [facility] [Outside] - 1 Week Physician,Unknown J [Physician] - 1 Week Discharge Medications: New atorvastatin 80 mg Tablet 80 mg PO BEDTIME Qty: 90 0RF aspirin 81 mg Tablet,Delayed Release (Dr/Ec) 81 mg PO DAILY Qty: 90 0RF Continued alendronate 70 mg Tablet 70 mg PO QWEEK atenolol-chlorthalidone 50-25 mg Tablet 1 tab PO DAILY amlodipine 5 mg Tablet 5 mg PO DAILY cyanocobalamin (vitamin B-12) 500 mcg Tablet 500 mcg PO DAILY cholecalciferol (vitamin D3) [Vitamin D3] 25 mcg (1,000 unit) Capsule 25 mcg PO DAILY Discharge Orders: Discharge Order (Routine); Ordered 05/15/24 Ordered By: Yfn Walls Diet: Advance to usual diet Activity on Discharge: As tolerated Stand Alone Forms: Patient Portal Discharge page Print Language: Romanian Care Plan Goals: Acute stroke, uncontrolled Hypertension Monitor blood pressure readings and report 1 week to your PCP for further evaluation Start Baby Aspirin daily Start Atorvastatin as prescribed Increase physical activity and lose weight Follow with neurology as needed outpatinet Health Concerns: Acute stroke Hypertension Plan of Treatment: ASpirin, statin Assessment: as above
--- NOTE | 2024-05-15 12:50 | MHC.CM.PN ---
DARCI has faxed dc summary to Deidre from [facility] at fax # [phone].
== END 2024-05-15 15:00 | disposition skilled nursing facility (03) | DRG 62 ==
LOC: HO.ED 20:51 → HO.EDOVER 21:23 → HO.ICU 22:31 → HO.IMC 05-12 13:19 → HO.ICU 05-12 15:45 → HO.IMC 05-13 13:35
PROVIDERS: Internal Medicine; Internal Medicine Pulmonary Disease; Admitting Provider Registered Nurse Community Health; Emergency Provider Emergency Medicine; PCP Internal Medicine; Visit Provider Student in an Organized Health Care Education/Training Program
DX: I63.331 Cerebral infarction due to thrombosis of right posterior cerebral artery (principal); G81.94 Hemiplegia, unspecified affecting left nondominant side; I16.1 Hypertensive emergency; E66.9 Obesity, unspecified; Z68.31 Body mass index [BMI] 31.0-31.9, adult; R29.709 NIHSS score 9; I72.5 Aneurysm of other precerebral arteries; I10 Essential (primary) hypertension; R29.810 Facial weakness; H53.462 Homonymous bilateral field defects, left side; Z79.899 Other long term (current) drug therapy
CPT/HCPCS: 36415; 70450; 70496; 70498; 70551; 80048; 80053; 80061; 82947; 83036; 83735; 84100; 84484; 85025; 85610; 85730; 92523; 93005; 93306; 97112; 97116; 97162; 97166; 97530; 97535; 99285; J1650; J1920; J3101; Q9967

== ENCOUNTER → 2024-05-11 19:32 | Outpatient (BNV) | payer MEDICARE, MEDICAID, SELFPAY | PROVIDERS: Admitting Provider Registered Nurse Community Health; Emergency Provider Emergency Medicine; Visit Provider Internal Medicine Cardiovascular Disease | DX: R94.31 Abnormal electrocardiogram [ECG] [EKG] (principal) | CPT/HCPCS: 93010 ==

== ENCOUNTER 2024-05-11 21:13 | Outpatient (BNV) | payer MEDICARE, SELFPAY | END 2024-05-13 07:00 | PROVIDERS: Admitting Provider Registered Nurse Community Health; Emergency Provider Emergency Medicine; Visit Provider Internal Medicine Cardiovascular Disease | DX: I35.8 Other nonrheumatic aortic valve disorders (principal); I42.8 Other cardiomyopathies | CPT/HCPCS: 93306 ==

== ENCOUNTER → 2024-05-11 21:13 | Outpatient (BNV) | payer MEDICARE, SELFPAY | PROVIDERS: Admitting Provider Registered Nurse Community Health; Emergency Provider Emergency Medicine; Visit Provider Psychiatry & Neurology Neurology | DX: I63.331 Cerebral infarction due to thrombosis of right posterior cerebral artery (principal) | CPT/HCPCS: 99222 ==

== ENCOUNTER → 2024-05-11 21:13 | Outpatient (BNV) | payer MEDICARE, MEDICAID, SELFPAY | PROVIDERS: Admitting Provider Registered Nurse Community Health; Emergency Provider Emergency Medicine; Visit Provider Internal Medicine Pulmonary Disease | DX: I63.9 Cerebral infarction, unspecified (principal); I10 Essential (primary) hypertension | CPT/HCPCS: 99232 ==

== ENCOUNTER → 2024-05-11 21:13 | Outpatient (BNV) | payer MEDICARE, MEDICAID, SELFPAY | PROVIDERS: Admitting Provider Registered Nurse Community Health; Emergency Provider Emergency Medicine; Visit Provider Registered Nurse Community Health | DX: I63.9 Cerebral infarction, unspecified (principal); I10 Essential (primary) hypertension; E66.9 Obesity, unspecified | CPT/HCPCS: 99223; 99291 ==

== ENCOUNTER → 2024-05-11 21:13 | Outpatient (BNV) | payer MEDICARE, MEDICAID, SELFPAY | PROVIDERS: Admitting Provider Registered Nurse Community Health; Emergency Provider Emergency Medicine; Visit Provider Internal Medicine | DX: I63.331 Cerebral infarction due to thrombosis of right posterior cerebral artery (principal) | CPT/HCPCS: 99232 ==

== ENCOUNTER 2024-06-30 13:46 | Emergency (ER) | payer MEDICARE, SELFPAY ==
--- NOTE | ~2024-06-30 | XR_ITS ---
CLINICAL HISTORY: eval stool burden 1 view abdomen Comparison: None Findings: No pneumoperitoneum or pneumatosis. No small bowel dilatation. No abnormal calcifications. 7 mm foreign body overlying the right iliac bone. IMPRESSION: Minimal fecal retention within the colon. This document has been electronically signed by: Kerri Moser MD on 06/30/2024 15:17:56
[2024-06-30 14:00] VITALS: BP 158/83; PULSE 61; RESP 18; TEMP 36.3; O2SAT 97; BMI 33.3
--- NOTE | 2024-06-30 14:03 | ED_ITS ---
HPI - Abdominal Pain General Chief Complaint: General Medical Stated Complaint: Abd issues Time Seen by Provider: 06/30/24 17:28 Source: patient Mode of arrival: ambulatory Limitations: language barrier (English-speaking ) History of Present Illness ED Provider: Lexi Geller NP HPI narrative: Patient is a 73-year-old female who presents emergency department for evaluation of constipation. This has been ongoing over the past month since her recent hospitalization for stroke. Reports she only has a very small bowel movements but has not had a sufficient formed stool in about 1-2 weeks. Reports that she has tried various [id number] regimens. She drinks about 2 L of water daily. She states that she will typically take 1 of the following medications once in the morning once in the evening varying depending on the day; senna, milk of magnesia, psyllium fiber. She reports that she has a decreased appetite due to this. Yesterday she received MiraLax but only took this once yesterday morning. Denies associated abdominal pain, no nausea, no vomiting, no fevers, no chills, no genitourinary symptoms. Related Data Home Medications ?Medication ?Instructions ?Recorded ?Confirmed alendronate 70 mg tablet 70 mg PO QWEEK 05/12/24 05/12/24 amlodipine 5 mg tablet 5 mg PO DAILY 05/12/24 05/12/24 atenolol 50 mg-chlorthalidone 25 1 tab PO DAILY 05/12/24 05/12/24 mg tablet cholecalciferol (vitamin D3) 25 25 mcg PO DAILY 05/12/24 05/12/24 mcg (1,000 unit) capsule (Vitamin D3) cyanocobalamin (vitamin B-12) 500 500 mcg PO DAILY 05/12/24 05/12/24 mcg tablet Previous Rx's ?Medication ?Instructions ?Recorded aspirin 81 mg tablet,delayed 81 mg PO DAILY #90 tabs 05/15/24 release atorvastatin 80 mg tablet 80 mg PO BEDTIME #90 tabs 05/15/24 Allergies Allergy/AdvReac Type Severity Reaction Status Date / Time No Known Allergies Allergy Verified 06/30/24 14:05 Review of Systems Review of Systems Yes all other systems are reviewed and are negative PMFSH Past Medical History Attestation statement: The following information was validated with the patient. Source: old records reviewed Medical History Hypertension Obesity Benign essential HTN Prediabetes HLD (hyperlipidemia) Surgical History No pertinent past surgical history Social History Social History (Updated 12/10/21 @ 16:28 by Khoa Cline MD) Household Members: Spouse Housing: Apartment Do you presently have visiting nurse or other home services: Yes ([facility]/[employer] W[employer] UP [employer]ER) Alcohol intake: never Patient Tobacco Use Status: Never used Tobacco e-Cigarette/Vaping Use: Never Used service: No Physical Exam ED Vital Signs: Vital Signs - 24 hr 06/30/24 14:00 Temperature 97.3 F Pulse Rate 61 Respiratory Rate 18 Blood Pressure 158/83 H Pulse Oximetry 97 Oxygen Delivery Method Room Air BMI result Body Mass Index 33.3 Appearance: Alert.?Oriented to person, place and time. No acute distress.?Normal affect. Eyes: Pupils equal, round and reactive to light.? ENT: Pharynx normal.?? Neck: Normal inspection.? Neck supple.?? CVS: Heart sounds normal. Normal heart rate and rhythm.? Pulses normal.?? Respiratory: No respiratory distress.? Lung sounds clear to auscultation bilaterally?? Abdomen: Soft and non-tender. Normoactive bowel sounds. Skin: Skin warm and dry.? Normal skin color.? Extremities: No lower extremity edema.? Neuro: Moves all extremities spontaneously. Sensation intact bilaterally. Ambulates with normal steady gait. Course Course Course Narrative: This is a rapid medical exam. Deferred additional HPI, ROS, PE to primary provider. 73 yo female with history of HTN here with constipation x 2 weeks. NO abdominal pain, vomiting. Feels rectal pain/pressure. Will obtain labs, UA, KUB VSS -A. 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 Ongoing issues with constipation since then as per family's report. She has tried different OTC regimens but not using anyone consistently. She does state that she stays well hydrated and consumes 2 L of water daily. Her abdominal examination is entirely benign. Although she has a decreased appetite she is able to tolerate oral intake no associated nausea or vomiting. Has not had any melena or hematochezia with a small amount of stools that have been passed. XR was obtained and there is mild fecal retention in the colon does not appear to have fecal impaction to the rectal vault that would be amenable to digital disimpaction. Discussed with her the use of MiraLax 1 capful in 8 oz of water hourly until sufficient bowel movement is achieved and subsequent usage for maintenance. I have a low clinical suspicion for obstruction with her benign examination tolerable oral intake. No indication for CT of the abdomen and pelvis at this time. Discussed outpatient follow-up with PCP. Discussed strict return precautions. Differential Diagnosis Differential Diagnoses: The differential diagnosis associated with the presentation includes (See narrative above) Admission/Observation Consideration of admission/observation: Escalation of care including admission/observation considered Lab Data MDM Lab Attestation statement: I reviewed the patient's lab results. CBC is without leukocytosis, no anemia, no thrombocytopenia. No electrolyte derangement. No VAMSI. Urinalysis without significant evidence suggesting urinary tract infection, asymptomatic from genitourinary standpoint and no pain. 06/30/24 14:30 06/30/24 14:30 Labs: Lab Results 06/30/24 Range/Units 14:30 WBC 6.8 (4.8-10.8) X10*3/uL RBC 4.78 (4.20-5.50) X10*6/uL Hgb 13.3 (12.0-16.0) g/dl Hct 40.1 (37.0-47.0) % MCV 83.9 (80.0-98.0) fL MCH 27.8 (27.0-33.0) pg MCHC 33.2 (31.0-35.0) g/dl RDW 14.1 (11.0-16.0) % Plt Count 234 D (160-400) X10*3/uL MPV 10.7 (9.4-12.3) fL Immature Gran % (Auto) 0.3 (0.0-0.4) % Neut % (Auto) 65.3 (45-73) % Lymph % (Auto) 22.9 (20-40) % [place] % (Auto) 10.0 (2-11) % Eos % (Auto) 1.2 (0-4) % Baso % (Auto) 0.3 (0-2) % Lymph # (Auto) 1.6 (1.2-4.9) X10*3/uL [place] # (Auto) 0.7 (0.1-1.2) X10*3/uL Eos # (Auto) 0.1 (0.0-0.4) X10*3/uL Baso # (Auto) 0.0 (0.0-0.2) X10*3/uL Abs Immat Gran (auto) 0.02 (0.00-0.03) X10*3/uL Absolute Neuts (auto) 4.5 (2.0-8.3) x10*3/uL Absolute Nucleated RBC 0.000 (0.0-0.012) X10*3/uL Nucleated RBC % (auto) 0.0 (0.0-0.2) /100WBC Sodium 142 (135-145) mmol/L Potassium 3.7 (3.3-5.1) mmol/L Chloride 105 (96-108) mmol/L Carbon Dioxide 26 (22-29) mmol/L Anion Gap 15 (12-20) BUN 5 L (9-16) mg/dL Creatinine 0.73 (0.5-1.4) mg/dL Estim Creat Clear Calc 65.6 Estimated GFR > 60 Random Glucose 111 (60-115) mg/dL Calcium 9.7 D (8.4-10.2) mg/dL Total Bilirubin 0.9 (0.0-1.0) mg/dL Direct Bilirubin 0.2 (0.0-0.5) mg/dL AST 28 (5-31) U/L ALT 20 (0-31) U/L Alkaline Phosphatase 63 (39-117) U/L Total Protein 8.0 (6.5-8.0) g/dL Albumin 4.3 (3.5-5.0) g/dL Urine Color Yellow Urine Appearance Clear Urine pH 8.0 (5.0-9.0) Ur Specific [place] <= 1.005 (1.005-1.025) Urine Protein Negative (Neg-Trace) mg/dL Urine Glucose (UA) Negative (Negative) mg/dL Urine Ketones Trace (Negative) mg/dL Urine Blood Negative (Negative) Urine Nitrite Negative (Negative) Ur Leukocyte Esterase Small (1+) H (Negative) Urine RBC 0-2 (0-2) /HPF Urine WBC 0-5 (0-5) /HPF Ur Squamous Epith Cells 3-5 (0-2) /HPF Urine Bacteria None Seen (None Seen) Hyaline Casts 0-2 (0-2) /LPF Independent Interpretation I performed an independent interpretation of an: Plain X-Ray (See narrative above) Radiology Impression Discussion of test interpretation with radiology: I have reviewed the radiologist's reading. Radiologist Impression: 1 view abdomen XR Comparison: None Findings: No pneumoperitoneum or pneumatosis. No small bowel dilatation. No abnormal calcifications. 7 mm foreign body overlying the right iliac bone. IMPRESSION: Minimal fecal retention within the colon. Independent Historian Clinical information obtained from an independent historian. History obtained from or confirmed by: Other External Record Review External record reviewed: Inpatient record and Outpatient record Prescription Management I considered prescription management with: Other (See narrative above) Discharge Plan Discharge Clinical Impression: Constipation Patient Disposition: Home, Self-Care Instructions: Constipation (ED), High Fiber Diet (ED) Additional Instructions: Continue consuming 2 L of water as you do daily. As discussed, you may use the MiraLax that you have at home. Take 1 capsule/17g in an 8 oz cup of water. Wait 1 hour, if you do not have a bowel movement you may repeat this step again. Continue repeating until you have sufficient bowel movement then you may discontinue usage. If you were not having any episodes of diarrhea following you may use the medication every other day to help regulate things. Follow-up with your primary care doctor Prescriptions: No Action alendronate 70 mg Tablet 70 mg PO QWEEK atenolol-chlorthalidone 50-25 mg Tablet 1 tab PO DAILY amlodipine 5 mg Tablet 5 mg PO DAILY cyanocobalamin (vitamin B-12) 500 mcg Tablet 500 mcg PO DAILY cholecalciferol (vitamin D3) [Vitamin D3] 25 mcg (1,000 unit) Capsule 25 mcg PO DAILY atorvastatin 80 mg Tablet 80 mg PO BEDTIME Qty: 90 0RF aspirin 81 mg Tablet,Delayed Release (Dr/Ec) 81 mg PO DAILY Qty: 90 0RF Referrals: Malinda Loera FNP-BC [Primary Care Provider] - Print Language: English
[2024-06-30 14:36] LABS: MANUAL DIFF FLAG NO
[2024-06-30 14:38] LABS: Appearance Urine Clear; Color Urine Yellow; Glucose Urine UA Negative (Negative); Leukocyte Esterase Urine Small (1+) (Negative); Nitrite Urine Negative (Negative); Specific Gravity - Urine <= 1.005 (1.005-1.025); UMIC TRIGGER UACC YES; Urine Blood Negative (Negative); Urine Ketones Trace mg/dL (Negative); Urine Protein Negative (Neg-Trace)
[2024-06-30 14:45] LABS: Bacteria Urine None Seen (None Seen); Hyaline Casts Urine 0-2 /LPF (0-2); RBC Urine 0-2 /HPF (0-2); UACC Culture Trigger YES; WBC Urine 0-5 /HPF (0-5)
[2024-06-30 14:48] LABS: Basophils Percent Auto 0.3 % (0-2); Eosinophils Absolute Auto 0.1 X10*3/uL (0.0-0.4); Eosinophils Percent Auto 1.2 % (0-4); Hematocrit 40.1 % (37.0-47.0); Hemoglobin 13.3 g/dl (12.0-16.0); Imm Gran Abs Auto 0.02 X10*3/uL (0.00-0.03); Imm Gran Pct Auto 0.3 % (0.0-0.4); Lymphocytes Absolute Auto 1.6 X10*3/uL (1.2-4.9); Lymphocytes Percent Auto 22.9 % (20-40); Mean Corpuscular HGB Conc 33.2 g/dl (31.0-35.0); Mean Corpuscular Hemoglobin 27.8 pg (27.0-33.0); Mean Corpuscular Volume 83.9 fL (80.0-98.0); Mean Platelet Volume 10.7 fL (9.4-12.3); Monocytes Absolute Auto 0.7 X10*3/uL (0.1-1.2); Neutrophils Absolute Auto 4.5 x10*3/uL (2.0-8.3); Neutrophils Percent Auto 65.3 % (45-73); Platelet Count 234 X10*3/uL (160-400); Red Blood Count 4.78 X10*6/uL (4.20-5.50); Red Cell Distribution Width 14.1 % (11.0-16.0); White Blood Count 6.8 X10*3/uL (4.8-10.8)
[2024-06-30 15:04] LABS: Alanine Aminotransferase 20 U/L (0-31); Albumin Level 4.3 g/dL (3.5-5.0); Alkaline Phosphatase 63 U/L (39-117); Anion Gap 15 (12-20); Aspartate Amino Transferase 28 U/L (5-31); Bilirubin Direct 0.2 mg/dL (0.0-0.5); Bilirubin Total 0.9 mg/dL (0.0-1.0); Blood Urea Nitrogen 5 mg/dL (9-16); Calcium 9.7 mg/dL (8.4-10.2); Carbon Dioxide 26 mmol/L (22-29); Chloride 105 mmol/L (96-108); Creatinine Clr Calc Pharmacy 65.6; Estimated Glomerular Filt Rate > 60; Glucose Random 111 mg/dL (60-115); Potassium 3.7 mmol/L (3.3-5.1); Sodium 142 mmol/L (135-145)
[2024-06-30 17:59] VITALS: BP 158/83; PULSE 61; RESP 18; TEMP 36.3; O2SAT 97
== END 2024-06-30 17:59 | disposition home or self-care (01) ==
PROVIDERS: Nurse Practitioner Family; Emergency Provider Emergency Medicine Emergency Medical Services; PCP Registered Nurse
DX: K59.00 Constipation, unspecified (principal); R10.2 Pelvic and perineal pain; Z79.899 Other long term (current) drug therapy
CPT/HCPCS: 36415; 74018; 80048; 80076; 81001; 85025; 87086; 99282; 99283

== ENCOUNTER → 2024-06-30 14:05 | Outpatient (BNV) | payer MEDICARE, SELFPAY | PROVIDERS: PCP Registered Nurse; Visit Provider Radiology Diagnostic Radiology | DX: K56.41 Fecal impaction (principal) | CPT/HCPCS: 74018 ==

== ENCOUNTER 2024-12-05 10:37 | Outpatient (AMB) | payer MEDICARE, SELFPAY ==
--- NOTE | 2024-12-05 10:49 | MHC.OFFVIS ---
Intake Visit Reasons: 3 month f/u Allergies No Known Allergies Allergy (Verified 06/30/24 14:05) Medication List - Last Reconciled 12/05/24 by Tania Land MD alendronate 70 mg PO QWEEK amlodipine 5 mg PO DAILY aspirin 81 mg PO DAILY atenolol-chlorthalidone 50-25 mg 1 tab PO DAILY cholecalciferol (vitamin D3) (Vitamin D3) 25 mcg PO DAILY cyanocobalamin (vitamin B-12) 500 mcg PO DAILY pravastatin 20 mg PO DAILY HPI Comments Details: 74 yo woman with HTN who came to ER at [facility] in May with acute onset of left sided weakness and uncontrolled HTN, and was treated wt TN for suspected ischemic infarct. 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 EKG and echocardiogram did not reveal any significant abnormality. She complain of numb feeling or left side of her body and sensitivity in left ear. Otherwise she was doing okay. 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 Cardiovascular: Regular rate and rhythm. Respiratory: Clear to auscultation bilaterally. Abdomen: Soft, non-tender, non-distended. Musculoskeletal: Full range of motion. No joint swelling or deformities. Skin: Warm, dry, intact. No rashes or lesions. Neuro Other: Mental Status: Alert and oriented to person, place, and time. Normal attention. Normal spontaneous speech, fluency, and comprehension. No obvious issues with mood and memory. Affect is appropriate. Cranial Nerves: CN II: Visual galvez full to confrontation, visual acuity intact. CN III, IV, : Pupils equal, round, reactive to light and accommodation. Extraocular movements are normal. CN V: Facial sensation is normal. CN VII: Facial movements symmetrical. CN VIII: Hearing intact to bedside conversation is normal. CN IX, X: Palate elevates symmetrically. CN XI: Shoulder shrug and head turn symmetrical. CN XII: Tongue midline without atrophy or fasciculations. Motor: Bulk and tone normal in all extremities. No significant muscle weakness in arms and legs. No drift. Reflexes: Deep tendon reflexes 2+ and symmetric. Plantar response down-going bilaterally. Coordination: [id number] and [id number] testing normal. No dysmetria. Gait and Station: No obvious gait abnormality. No ataxia or instability. Sensory: Intact to light touch, pinprick, and vibration. Romberg is negative. Extrapyramidal: Full facial expressions and blinking. No rigidity. Movements are appropriate with no tremor or abnormality. Speech: Normal; no dysarthria or tremor. Assessment & Plan Assessment & Plan (1) Cerebral infarction: Comment: MRI brain WO at [facility] in May 2024: Large R FIELD AUTO APPRAISER acute infarct, extensive underlying chronic MVD CTA brain and neck at [facility] in May 2024: R FIELD AUTO APPRAISER infarct, MVD, 1.4 cm partially thrombosed L mid basilar artery aneurysm, mod L P2 stenosis. Code(s): I63.9 - Cerebral infarction, unspecified Category: Medical Qualifiers: Cerebral infarction mechanism: thrombosis Precerebral and cerebral artery: posterior cerebral artery Laterality of affected vessel: right Qualified Code(s): I63.331 - Cerebral infarction due to thrombosis of right posterior cerebral artery (2) Cerebral aneurysm: Comment: It was a thrombosed aneurysm requiring no further intervention Code(s): I67.1 - Cerebral aneurysm, nonruptured Category: Medical (3) Cerebral microvascular disease: Code(s): I67.89 - Other cerebrovascular disease Category: Medical (4) Intracranial atherosclerosis: Code(s): I67.2 - Cerebral atherosclerosis Category: Medical Plan 74 years old woman with intracranial atherosclerosis atherothrombotic right posterior cerebral artery cerebral infarction. Mainstay of management is blood pressure control, anti-platelet agent and statins. As far as cerebral aneurysm is concerned, it was thrombosed and did not require any further intervention. As far as left-sided numbness is concerned, this was relatively minor problem compared to the size of stroke she had. She was reassured and educated. Coding Level of Care Code Est Pt Level 4 (12951) Diagnoses Cerebral infarction due to thrombosis of right posterior cerebral artery I63.331 Cerebral infarction mechanism: thrombosis Precerebral and cerebral artery: posterior cerebral artery Laterality of affected vessel: right Cerebral aneurysm I67.1 Cerebral microvascular disease I67.89 Intracranial atherosclerosis I67.2
== END 2024-12-05 11:37 | disposition home or self-care (01) ==
LOC: HO.HSM 10:37
PROVIDERS: PCP Registered Nurse; Visit Provider Psychiatry & Neurology Neurology
DX: I63.331 Cerebral infarction due to thrombosis of right posterior cerebral artery (principal); I67.1 Cerebral aneurysm, nonruptured; I67.89 Other cerebrovascular disease; I67.2 Cerebral atherosclerosis
CPT/HCPCS: 99214

== ENCOUNTER → 2024-12-05 10:37 | Outpatient (BNVA) | payer MEDICARE, SELFPAY | PROVIDERS: PCP Registered Nurse; Visit Provider Psychiatry & Neurology Neurology | DX: I63.331 Cerebral infarction due to thrombosis of right posterior cerebral artery (principal) | CPT/HCPCS: 99212 ==